=== PATIENT | female | born 1970 | race Caucasian/White ===

== ENCOUNTER 2024-05-29 17:53 | Observation (INO) ==
[2024-05-29 18:36] LABS: Basophils # (auto) 0.05 K/uL (0.00-0.20); Basophils % (auto) 0.8 %; Eosinophils # (auto) 0.03 K/uL (0.00-0.50); Eosinophils % (auto) 0.5 %; Hematocrit (blood only) 46.7 % (37.0-47.0); Immature Granulocytes # (auto) 0.02 K/uL (0.01-0.20); Immature Granulocytes % (auto) 0.3 %; Lymphocytes # (auto) 1.73 K/uL (1.20-3.40); Mean Corpuscular Hemoglobin 30.4 pg (25.0-34.0); Mean Corpuscular Hgb Conc 34.3 g/dL (32.0-36.0); Mean Corpuscular Volume 88.8 fL (80.0-100.0); Mean Platelet Volume 10.7 fL (9.4-12.4); Monocytes % (auto) 9.7 %; Neutrophils # (auto) 3.75 K/uL (1.40-6.50); Neutrophils % (auto) 60.7 %; Platelet Count 280 K/uL (130-400); RDW Coefficient of Variation 12.3 % (11.5-14.5); RDW Standard Deviation 39.9 fL (36.4-46.3); Red Blood Count 5.26 M/uL (4.20-5.40); White Blood Count 6.18 K/ul (4.8-10.8)
[2024-05-29 18:51] LABS: Albumin Globulin Ratio 1.8 (0.9-2); Albumin Level 5.8 gm/dl (3.4-5.0); BUN Creatinine Ratio 23.3 (10-20); Bilirubin,Total 0.9 mg/dl (0.2-1.0); Calcium 11.1 mg/dl (8.6-10.3); Creatinine Clr Calc Pharmacy 53.4 ml/min; Globulin 3.2 gm/dl (2.5-4.0); Potassium 3.8 mmol/L (3.5-5.1)
--- NOTE | 2024-05-29 18:55 | Emergency Department Note ---
Impression & Plan HTN (hypertension), EKG abnormalities, Elevated troponin, Nausea ED Provider Note NAME: KAREN CASSIDY AGE: 53 SEX: F : 1970 ARRIVES VIA: Walk-In INFORMANT: Patient ED PROVIDER(S): Heber Galicia DO CHIEF COMPLAINT: Abdominal pain HPI: Patient is a 53-year-old female with a past medical history of depression who presents ER for nausea and notes that she cannot eat. She was just started on semaglutide and took her second dose this past Monday. Since then she has been very nauseated and cannot eat. She denies any headache or change in vision. No chest pain or exertional chest pain or shortness of breath. No belly pain. No dysuria, urgency, or frequency. No arm pain or jaw pain. No other exacerbating or remitting factors. Patient notes that she had an EKG done as an outpatient and she was referred in here for abnormal EKG. ADDITIONAL HISTORY OBTAINED: Per HPI Chronic Medical/Social Conditions Affecting Care: Per HPI PAST MEDICAL HISTORY:See Below PAST SURGICAL HISTORY:See Below FAMILY HISTORY:See Below SOCIAL HISTORY:See Below HOME MEDICATIONS:See Below ALLERGIES:See Below VITALS:See Below PHYSICAL EXAMINATION: GENERAL: Sitting up in chair, alert, well appearing, well nourished, no distress, non-toxic EYE EXAM: normal conjunctiva. OROPHARYNX: mucous membranes are moist NECK: supple, no nuchal rigidity, no adenopathy, non-tender LUNGS: Clear to auscultation. Normal chest wall mechanics HEART: no murmurs, S1 normal and S2 normal ABDOMEN: abdomen soft, non-tender, normo-active bowel sounds, no masses, no rebound or guarding. UPPER EXTREMITIES: upper extremities are grossly normal. LOWER EXTREMITIES: No pitting edema. NEURO EXAM: Normal sensorium, cranial nerves II-XII grossly intact, normal speech, no gross weakness of arms, no gross weakness of legs. MEDICAL DECISION MAKING: Patient is a 53-year-old female who presents ER for the above-stated complaint. IV was established and blood work was obtained. Labs show no significant leukocytosis or anemia. INR unremarkable. BMP with a slightly elevated BUN. Calcium was unremarkable. LFTs and bilirubin were normal. Troponin was mildly elevated. hCG was negative. UA was contaminated. CT abdomen pelvis showed no acute pathology. Patient was given IV fluids and Zofran. Patient was updated bedside and discussed with the hospitalist for further evaluation management treatment. She does not have any chest pain or shortness of breath. Do favor EKG changes or simply LVH and the elevated troponin I favor is unlikely ACS but rather secondary to her hypertension. Systolic pressures came down from 180s to 140s to 150s without intervention. The persistent nausea is likely secondary to the Ozempic which she recently started. Consults/Care Managements Discussions: Per MDM Triage Nursing notes reviewed. Limited review of prior medical records performed Vital Signs: reviewed and remarkable for HTN, tachy Differential diagnosis: Differential diagnoses includes but is not limited to gastritis, peptic ulcer disease, GERD, gallbladder disease, pancreatitis, small bowel obstruction, appendicitis, diverticulitis, hernia, urinary tract infection, torsion, /ectopic (if female), perforation, trauma, infectious. ER treatment provided: See below Diagnostics interpreted by me include EKG and cardiac monitoring as listed below: -Cardiac Monitoring: An order was placed for continuous cardiac monitoring. The monitor shows a rate of 110 with sinus rhythm. -ECG: Sinus tachycardia rate of 112 Left axis No PVCs QTc 455 -Laboratory studies:Interpreted by me as stated above in MDM and shown below. Imaging studies: Xrays: As interpreted by me:none CTs show: CT abdomen pelvis per my pleurae interpretation showed no obvious bowel obstruction CT abdomen pelvis per radiology showed no acute pathology Procedures:none Critical Care: None Past Med/Surg History Problem List (Updated 05/29/24 @ 22:15 by Heber Galicia DO) Nausea (Acute) Elevated troponin (Acute) EKG abnormalities (Acute) HTN (hypertension) (Acute) Anorexia Nausea & vomiting Depression Contusion of multiple sites (Acute) Fall (Acute) Social History Smoking Status: Never smoker Preferred Language: Uzbek Feels Safe at Home: Yes Allergies Allergies Allergy/AdvReac Type Severity Reaction Status Date / Time Dust Allergy Intermediate congestion Uncoded 05/29/24 19:08 Home Meds Home Medications Medication Instructions Recorded Confirmed atorvastatin 10 mg tablet 10 mg PO DAILY 05/29/24 05/29/24 lisinopril 20 1 tab PO DAILY 05/29/24 05/29/24 mg-hydrochlorothiazide 25 mg tablet metoprolol succinate 50 mg 50 mg PO DAILY 05/29/24 05/29/24 tablet,extended release 24 hr omeprazole 20 mg capsule,delayed 20 mg PO DAILY 05/29/24 05/29/24 release sertraline 100 mg tablet 150 mg PO QAM 05/29/24 05/29/24 Results & Data (ED) Vital Signs Vital Signs - 24 hr 05/29/24 17:58 05/29/24 19:05 05/29/24 19:06 Temperature 36.7 C Temperature Source Temporal Artery Scan Pulse Rate 108 H Pulse Rate [Apical] 100 H Respiratory Rate 18 20 Respiratory Effort / Characteristics Non-Labored Spontaneous Non-Labored Spontaneous Respiratory Depth Normal Normal Respiratory Pattern Regular Regular Blood Pressure 142/81 H Blood Pressure [Right Arm] 180/116 H Blood Pressure Mean 101 Blood Pressure Mean [Right Arm] 137 Blood Pressure Position Sitting Blood Pressure Position [Right Arm] Semi-fowlers Pulse Oximetry 97 98 98 Oxygen Delivery Method Room Air Room Air Room Air Sepsis Recent Fever Within 48 Hours No Sepsis New/Unexplained Change in Mental Status N/A Sepsis Action Taken by Nursing No Action Required 05/29/24 19:10 05/29/24 21:00 Temperature Temperature Source Pulse Rate 101 H Pulse Rate [Apical] 93 H Respiratory Rate 14 Respiratory Effort / Characteristics Non-Labored Spontaneous Respiratory Depth Normal Respiratory Pattern Regular Blood Pressure Blood Pressure [Right Arm] 151/116 H Blood Pressure Mean Blood Pressure Mean [Right Arm] 127 Blood Pressure Position Blood Pressure Position [Right Arm] Semi-fowlers Pulse Oximetry 97 Oxygen Delivery Method Room Air Sepsis Recent Fever Within 48 Hours Sepsis New/Unexplained Change in Mental Status Sepsis Action Taken by Nursing Laboratory Data 05/29/24 18:16 05/29/24 18:16 Lab Results 05/29/24 05/29/24 05/29/24 Range/Units 18:13 18:16 21:15 WBC 6.18 (4.8-10.8) K/ul RBC 5.26 (4.20-5.40) M/uL Hgb 16.0 (12.0-16.0) g/dl Hct 46.7 (37.0-47.0) % MCV 88.8 (80.0-100.0) fL MCH 30.4 (25.0-34.0) pg MCHC 34.3 (32.0-36.0) g/dL RDW Std Deviation 39.9 (36.4-46.3) fL RDW Coeff of Julio 12.3 (11.5-14.5) % Plt Count 280 (130-400) K/uL MPV 10.7 (9.4-12.4) fL Immature Gran % (Auto) 0.3 % Neut % (Auto) 60.7 % Lymph % (Auto) 28.0 % [place] % (Auto) 9.7 % Eos % (Auto) 0.5 % Baso % (Auto) 0.8 % Neut # (Auto) 3.75 (1.40-6.50) K/uL Lymph # (Auto) 1.73 (1.20-3.40) K/uL [place] # (Auto) 0.60 H (0.11-0.59) K/uL Eos # (Auto) 0.03 (0.00-0.50) K/uL Baso # (Auto) 0.05 (0.00-0.20) K/uL Immature Gran # (Auto) 0.02 (0.01-0.20) K/uL PT 10.6 (9.0-12.0) Seconds INR 1.0 (0.9-1.1) APTT 31 (21-31) Seconds PTT Ratio 1.2 Sodium 137 (136-145) mmol/L Potassium 3.8 (3.5-5.1) mmol/L Chloride 100 (98-107) mmol/L Carbon Dioxide 26 (21-32) mmol/L Anion Gap 11 (3-11) BUN 28 H (6-23) mg/dl Creatinine 1.20 (0.6-1.2) mg/dl Est Cr Clr Drug Dosing 53.4 ml/min eGFR 53.46 BUN/Creatinine Ratio 23.3 H (10-20) Glucose 88 (70-99(Fasting)) mg/dl Calcium 11.1 H (8.6-10.3) mg/dl Total Bilirubin 0.9 (0.2-1.0) mg/dl AST 32 (13-39) U/L ALT 31 (7-52) U/L Alkaline Phosphatase 87 (34-104) U/L Troponin I High Sens 16.8 H 14.4 H (0-14) pg/ml Total Protein 9.0 H (6.0-8.3) gm/dl Albumin 5.8 H (3.4-5.0) gm/dl Globulin 3.2 (2.5-4.0) gm/dl Albumin/Globulin Ratio 1.8 (0.9-2) Lipase 55 (11-82) U/L HCG, Qual Negative (Negative) Urine Color Urine Appearance (Clear) Urine pH (4.5-7.5) Ur Specific Maple (1.000-1.030) Urine Protein (Negative) Urine Glucose (UA) (Negative) Urine Ketones (Negative) Urine Blood (Negative) Urine Nitrite (Negative) Urine Bilirubin (Negative) Urine Urobilinogen (Negative) Ur Leukocyte Esterase (Negative) Urine WBC (Auto) (0-5) /hpf Urine RBC (Auto) (0-2) /hpf U Hyaline Cast (Auto) (0-2) /lpf U Epithel Cells (Auto) (0-2) /hpf Urine Bacteria (Auto) (None Seen) 05/29/24 Range/Units Unknown WBC (4.8-10.8) K/ul RBC (4.20-5.40) M/uL Hgb (12.0-16.0) g/dl Hct (37.0-47.0) % MCV (80.0-100.0) fL MCH (25.0-34.0) pg MCHC (32.0-36.0) g/dL RDW Std Deviation (36.4-46.3) fL RDW Coeff of Julio (11.5-14.5) % Plt Count (130-400) K/uL MPV (9.4-12.4) fL Immature Gran % (Auto) % Neut % (Auto) % Lymph % (Auto) % [place] % (Auto) % Eos % (Auto) % Baso % (Auto) % Neut # (Auto) (1.40-6.50) K/uL Lymph # (Auto) (1.20-3.40) K/uL [place] # (Auto) (0.11-0.59) K/uL Eos # (Auto) (0.00-0.50) K/uL Baso # (Auto) (0.00-0.20) K/uL Immature Gran # (Auto) (0.01-0.20) K/uL PT (9.0-12.0) Seconds INR (0.9-1.1) APTT (21-31) Seconds PTT Ratio Sodium (136-145) mmol/L Potassium (3.5-5.1) mmol/L Chloride (98-107) mmol/L Carbon Dioxide (21-32) mmol/L Anion Gap (3-11) BUN (6-23) mg/dl Creatinine (0.6-1.2) mg/dl Est Cr Clr Drug Dosing ml/min eGFR BUN/Creatinine Ratio (10-20) Glucose (70-99(Fasting)) mg/dl Calcium (8.6-10.3) mg/dl Total Bilirubin (0.2-1.0) mg/dl AST (13-39) U/L ALT (7-52) U/L Alkaline Phosphatase (34-104) U/L Troponin I High Sens (0-14) pg/ml Total Protein (6.0-8.3) gm/dl Albumin (3.4-5.0) gm/dl Globulin (2.5-4.0) gm/dl Albumin/Globulin Ratio (0.9-2) Lipase (11-82) U/L HCG, Qual (Negative) Urine Color Dark Yellow Urine Appearance Cloudy A (Clear) Urine pH 5.5 (4.5-7.5) Ur Specific Maple 1.030 (1.000-1.030) Urine Protein 2+ H (Negative) Urine Glucose (UA) Negative (Negative) Urine Ketones 2+ H (Negative) Urine Blood Negative (Negative) Urine Nitrite Negative (Negative) Urine Bilirubin Negative (Negative) Urine Urobilinogen Negative (Negative) Ur Leukocyte Esterase Trace H (Negative) Urine WBC (Auto) 11-20 H (0-5) /hpf Urine RBC (Auto) 0-2 (0-2) /hpf U Hyaline Cast (Auto) 11-20 H (0-2) /lpf U Epithel Cells (Auto) 11-20 H (0-2) /hpf Urine Bacteria (Auto) 3+ H (None Seen) Administered Medications Discontinued Medications Sodium Chloride (Nss) 1,000 mls @ 999 mls/hr IV .[id number] ONE Stop: 05/29/24 19:52 Last Infusion: 05/29/24 20:03 Dose: Infused Documented By: Admin: 05/29/24 19:11 Dose: 999 mls/hr Documented By: TANYA Ioversol (Optiray 320 100ml) 90 ml IV ONCE ONE Stop: 05/29/24 19:21 Last Admin: 05/29/24 19:21 Dose: 90 ml Documented By: HUGO Ondansetron HCl (Ondansetron Inj 2 Mg/Ml 2 Ml Vial) 4 mg IV NOW STA Stop: 05/29/24 18:53 Last Admin: 05/29/24 19:12 Dose: 4 mg Documented By: TANYA Imaging Data Radiologist's Impression: Abdomen/Pelvis CT 05/29/24 18:51 Clinical History: Abdominal pain Technique: Axial computed tomography images were obtained of the abdomen and pelvis after the administration of intravenous contrast. No prior CT is available for comparison. Findings: The liver is overall of normal size, attenuation, and contour with no sign of cirrhosis or significant fatty infiltration. No liver mass lesion is seen. The portal vein is patent. The gallbladder appears unremarkable. No bile duct dilatation is noted. The spleen is of normal size. No focal splenic lesion is evident. The pancreas appears normal with no sign of acute or chronic pancreatitis and no mass lesion noted. The pancreatic duct is of normal caliber. The adrenal glands appear unremarkable. No definite renal or proximal ureteral calculi are seen on this contrast-enhanced study. There is no hydronephrosis or perinephric stranding. No renal mass lesion is identified. The aorta is of normal caliber. No abdominal adenopathy is seen. The stomach appears normal. There is no sign of small bowel obstruction. The colon appears unremarkable. The appendix appears normal also. No free intraperitoneal fluid or air is identified. No distal ureteral or bladder calculi are seen. The bladder is decompressed. The iliac arteries are of normal caliber. No pelvic adenopathy is noted. There is a 3 mm nodular opacity in the right middle lobe. No fracture is identified. No focal osseous lesion is seen Impression: 1. Small right middle lobe nodule, likely benign. If there is a history of smoking or other high-risk indicators, a follow-up chest CT could be obtained in 6 months [address] Otherwise un[address] CT of the abdomen and pelvis ACT 112: Positive. There are findings on this exam that require communication between the performing entity and the patient following Patient Test Result Information Act ([place] ACT 112) guidelines. Electronically signed by Mike Stovall 05-29-2024 7:51 PM Discharge Plan Visit Data Chief Complaint: Nausea Stated Complaint: DOC REF,NAUSEA ED Provider: Heber Galicia Discharge Problem: HTN (hypertension), EKG abnormalities, Elevated troponin, Nausea Forms Stand Alone Forms: My [facility] [employer] Prescriptions Prescriptions: No Action atorvastatin 10 mg tablet 10 mg PO DAILY metoprolol succinate 50 mg tablet extended release 24 hr 50 mg PO DAILY sertraline 100 mg tablet 150 mg PO QAM omeprazole 20 mg capsule,delayed release(DR/EC) 20 mg PO DAILY lisinopril-hydrochlorothiazide 20-25 mg tablet 1 tab PO DAILY Referrals Referrals: Clark Patiño MD [Primary Care Provider] - Discharge Problem: HTN (hypertension) Qualifiers: Hypertension type: unspecified Qualified Code(s): I10 - Essential (primary) hypertension
[2024-05-29 19:11] LABS: Pregnancy Test, Serum Negative (Negative)
[2024-05-29] MEDS: SODIUM CHLORIDE 0.9% 1,000 ML IV ONE (19:11)
[2024-05-29] MEDS: ONDANSETRON INJ 2 MG/ML 2 ML VIAL IV STA (19:12)
[2024-05-29 19:15] LABS: Partial Thromboplastin Ratio 1.2; Partial Thromboplastin Time 31 Seconds (21-31); Prothrombin Time 10.6 Seconds (9.0-12.0)
[2024-05-29] MEDS: OPTIRAY 320 100ml IV ONE (19:21)
[2024-05-29 19:35] LABS: Troponin I High Sensitivity 16.8 pg/ml (0-14)
[2024-05-29 19:50] LABS: Appearance Urine Cloudy (Clear); Bacteria Urine Automated 3+ (None Seen); Bilirubin Urine Negative (Negative); Blood Urine Negative (Negative); Color Urine Dark Yellow; Glucose Urine UA Negative (Negative); Ketones Urine 2+ (Negative); Leukocyte Esterase Urine Trace (Negative); Nitrite Urine Negative (Negative); Protein Urine 2+ (Negative); RBC Urine Automated 0-2 /hpf (0-2); Urobilinogen Urine Negative (Negative); pH Urine 5.5 (4.5-7.5)
--- NOTE | 2024-05-29 19:52 | CT Scan Report ---
Clinical History: Abdominal pain Technique: Axial computed tomography images were obtained of the abdomen and pelvis after the administration of intravenous contrast. No prior CT is available for comparison. Findings: The liver is overall of normal size, attenuation, and contour with no sign of cirrhosis or significant fatty infiltration. No liver mass lesion is seen. The portal vein is patent. The gallbladder appears unremarkable. No bile duct dilatation is noted. The spleen is of normal size. No focal splenic lesion is evident. The pancreas appears normal with no sign of acute or chronic pancreatitis and no mass lesion noted. The pancreatic duct is of normal caliber. The adrenal glands appear unremarkable. No definite renal or proximal ureteral calculi are seen on this contrast-enhanced study. There is no hydronephrosis or perinephric stranding. No renal mass lesion is identified. The aorta is of normal caliber. No abdominal adenopathy is seen. The stomach appears normal. There is no sign of small bowel obstruction. The colon appears unremarkable. The appendix appears normal also. No free intraperitoneal fluid or air is identified. No distal ureteral or bladder calculi are seen. The bladder is decompressed. The iliac arteries are of normal caliber. No pelvic adenopathy is noted. There is a 3 mm nodular opacity in the right middle lobe. No fracture is identified. No focal osseous lesion is seen Impression: 1. Small right middle lobe nodule, likely benign. If there is a history of smoking or other high-risk indicators, a follow-up chest CT could be obtained in 6 months 2. Otherwise unremarkable CT of the abdomen and pelvis ACT 112: Positive. There are findings on this exam that require communication between the performing entity and the patient following Patient Test Result Information Act ([place] ACT 112) guidelines. Electronically signed by Mike Stovall 05-29-2024 7:51 PM
--- NOTE | 2024-05-29 21:08 | History & Physical Report ---
Date of Service May 29, 2024 Assessment & Plan (1) Nausea & vomiting: Plan: Secondary to compounded online semaglutide Discontinue this medication IV fluids given Zofran as needed Advance diet slowly (2) Anorexia: Plan: Discontinue semaglutide (3) Depression: Plan: Stable Continue sertraline (4) HTN (hypertension): Plan: Continue prior to admission antihypertensives Follow blood pressures May need to adjust medications Check echocardiogram to assess for LVH (5) EKG abnormalities: Plan: Consult cardiology EKG repeat Echocardiogram LVH suggests uncontrolled HTN (6) Elevated troponin: Plan: Trend troponins Calcium is elevated. Will check ionized calcium and TSH UA looks positive. Cultures pending. She has no urinary symptoms VTE prophylaxis: Patient is low risk for now. Encourage ambulation Patient is a full code Total of 77 minutes spent in the direct care of this patient History of Present Illness Chief Complaint: Intractable nausea and vomiting, anorexia, medication reaction, abnormal EKG Primary Care Provider: Clark Patiño MD Marya Jones is a 53-year-old female with a past medical history of depression, hypertension, anxiety, heart murmur and GERD. She presents to the ER from her PCP office for intractable nausea and vomiting and notes that she cannot eat. She was started on semaglutide. This was a compounded formulation that she got online at 2.5 mg. Her first dose was on 05/18/2024. Second dose was on 05/25/2024. She tolerated the first dose without too much difficulty but after the second dose she has had significant nausea for the past week along with vomiting. She has been able to eat or drink much at all. She feels like she has a bubble in her chest. She states overall she has lost about 15 pounds. She denies any headache or change in vision. No chest pain or exertional chest pain or shortness of breath. No belly pain. No dysuria urgency or frequency. No arm pain or jaw pain. No other exacerbating or remitting factors. EKG in the office showed LVH and lateral T wave changes which were new. This was confirmed on EKG in the ED. Her troponin was mildly elevated at 16.8 in the ED. Repeat was 14.4. Calcium was 11.1. CT scan of the abdomen without acute abnormalities. Patient was given IV fluids in the ED. BP was initially high but has come down in the ED. UA looks positive. Culture pending but no urinary complaints Allergies Allergy/AdvReac Type Severity Reaction Status Date / Time Dust Allergy Intermediate congestion Uncoded 05/29/24 19:08 Home Medications Medication Instructions Recorded Confirmed Type atorvastatin 10 mg tablet 10 mg PO DAILY 05/29/24 05/29/24 History lisinopril 20 1 tab PO DAILY 05/29/24 05/29/24 History mg-hydrochlorothiazide 25 mg tablet metoprolol succinate 50 mg 50 mg PO DAILY 05/29/24 05/29/24 History tablet,extended release 24 hr omeprazole 20 mg capsule,delayed 20 mg PO DAILY 05/29/24 05/29/24 History release sertraline 100 mg tablet 150 mg PO QAM 05/29/24 05/29/24 History Past Med/Surg History Problem List (Updated 05/29/24 @ 22:15 by Heber Galicia DO) Nausea (Acute) Elevated troponin (Acute) EKG abnormalities (Acute) HTN (hypertension) (Acute) Anorexia Nausea & vomiting Depression Contusion of multiple sites (Acute) Fall (Acute) Social History Smoking Status: Never smoker Preferred Language: [place] Feels Safe at Home: Yes Review of Systems Review of Systems: Constitutional- no fever; has a 15 lb weight loss Eyes- no acute visual changes ENT- no sinus drainage; no pharyngitis Pulmonary- no cough, no wheezing, no shortness of breath Cardiac- no chest pain, no palpitations, no orthopnea, no dependent edema GI- has nausea and vomiting, no diarrhea, no melena, no hematochezia, - no dysuria, no hematuria Musculoskeletal- no arthralgias, no myalgias Derm- no rashes, no new skin lesions, no changing skin lesions Hematologic- no unusual bruising, no unusual bleeding Lymphatics- no adenopathy Endocrine- no polyuria or polydipsia; no heat or cold intolerance Neuro- no headaches, no focal neurologic symptoms Psych- hx of anxiety and depression stable Physical Exam Physical Exam: General- adult female seen at bedside in ED. Appears ill Head- atraumatic Eyes- PERRL, EOMI, anicteric ENT- oropharynx clear Neck- supple, no JVD, no adenopathy, no thyromegaly; carotids +2/2, no bruits appreciated Lungs- clear to auscultation and percussion Heart- regular rhythm; no murmur, no gallop, no rub appreciated Abdomen- normal bowel sounds, soft, nontender, no masses or hepatosplenomegaly Extremities- no pretibial edema, no calf tenderness; peripheral pulses intact Neuro- alert, oriented x 3; PERRL, EOMI; no facial palsy; no dysarthria; motor 5/5 bilaterally; Skin- warm & dry Results & Data Results & Data Vital Signs (Past 12 Hours) Vital Signs Temp Pulse Pulse Resp BP BP Pulse Ox 05/29/24 19:10 101 H 05/29/24 19:06 100 H 20 180/116 H 98 05/29/24 19:05 98 05/29/24 17:58 36.7 C 108 H 18 142/81 H 97 O2 Del Method 05/29/24 19:10 05/29/24 19:06 Room Air 05/29/24 19:05 Room Air 05/29/24 17:58 Room Air Diagnostic Findings Laboratory Results WBC 6.18 K/ul (4.8-10.8) 05/29/24 18:16 RBC 5.26 M/uL (4.20-5.40) 05/29/24 18:16 Hgb 16.0 g/dl (12.0-16.0) 05/29/24 18:16 Hct 46.7 % (37.0-47.0) 05/29/24 18:16 MCV 88.8 fL (80.0-100.0) 05/29/24 18:16 MCH 30.4 pg (25.0-34.0) 05/29/24 18:16 MCHC 34.3 g/dL (32.0-36.0) 05/29/24 18:16 RDW Std Deviation 39.9 fL (36.4-46.3) 05/29/24 18:16 RDW Coeff of Julio 12.3 % (11.5-14.5) 05/29/24 18:16 Plt Count 280 K/uL (130-400) 05/29/24 18:16 MPV 10.7 fL (9.4-12.4) 05/29/24 18:16 Immature Gran % (Auto) 0.3 % 05/29/24 18:16 Neut % (Auto) 60.7 % 05/29/24 18:16 Lymph % (Auto) 28.0 % 05/29/24 18:16 Grainger % (Auto) 9.7 % 05/29/24 18:16 Eos % (Auto) 0.5 % 05/29/24 18:16 Baso % (Auto) 0.8 % 05/29/24 18:16 Neut # (Auto) 3.75 K/uL (1.40-6.50) 05/29/24 18:16 Lymph # (Auto) 1.73 K/uL (1.20-3.40) 05/29/24 18:16 Grainger # (Auto) 0.60 K/uL (0.11-0.59) H 05/29/24 18:16 Eos # (Auto) 0.03 K/uL (0.00-0.50) 05/29/24 18:16 Baso # (Auto) 0.05 K/uL (0.00-0.20) 05/29/24 18:16 Immature Gran # (Auto) 0.02 K/uL (0.01-0.20) 05/29/24 18:16 PT 10.6 Seconds (9.0-12.0) 05/29/24 18:16 INR 1.0 (0.9-1.1) 05/29/24 18:16 APTT 31 Seconds (21-31) 05/29/24 18:16 PTT Ratio 1.2 05/29/24 18:16 Sodium 137 mmol/L (136-145) 05/29/24 18:16 Potassium 3.8 mmol/L (3.5-5.1) 05/29/24 18:16 Chloride 100 mmol/L (98-107) 05/29/24 18:16 Carbon Dioxide 26 mmol/L (21-32) 05/29/24 18:16 Anion Gap 11 (3-11) 05/29/24 18:16 BUN 28 mg/dl (6-23) H 05/29/24 18:16 Creatinine 1.20 mg/dl (0.6-1.2) 05/29/24 18:16 Est Cr Clr Drug Dosing 53.4 ml/min 05/29/24 18:16 eGFR 53.46 05/29/24 18:16 BUN/Creatinine Ratio 23.3 (10-20) H 05/29/24 18:16 Glucose 88 mg/dl (70-99(Fasting)) 05/29/24 18:16 Calcium 11.1 mg/dl (8.6-10.3) H 05/29/24 18:16 Total Bilirubin 0.9 mg/dl (0.2-1.0) 05/29/24 18:16 AST 32 U/L (13-39) 05/29/24 18:16 ALT 31 U/L (7-52) 05/29/24 18:16 Alkaline Phosphatase 87 U/L (34-104) 05/29/24 18:16 Troponin I High Sens 16.8 pg/ml (0-14) H 05/29/24 18:16 Total Protein 9.0 gm/dl (6.0-8.3) H 05/29/24 18:16 Albumin 5.8 gm/dl (3.4-5.0) H 05/29/24 18:16 Globulin 3.2 gm/dl (2.5-4.0) 05/29/24 18:16 Albumin/Globulin Ratio 1.8 (0.9-2) 05/29/24 18:16 Lipase 55 U/L (11-82) 05/29/24 18:16 HCG, Qual Negative (Negative) 05/29/24 18:13 Urine Color Dark Yellow 05/29/24 Unknown Urine Appearance Cloudy (Clear) A 05/29/24 Unknown Urine pH 5.5 (4.5-7.5) 05/29/24 Unknown Ur Specific Plato 1.030 (1.000-1.030) 05/29/24 Unknown Urine Protein 2+ (Negative) H 05/29/24 Unknown Urine Glucose (UA) Negative (Negative) 05/29/24 Unknown Urine Ketones 2+ (Negative) H 05/29/24 Unknown Urine Blood Negative (Negative) 05/29/24 Unknown Urine Nitrite Negative (Negative) 05/29/24 Unknown Urine Bilirubin Negative (Negative) 05/29/24 Unknown Urine Urobilinogen Negative (Negative) 05/29/24 Unknown Ur Leukocyte Esterase Trace (Negative) H 05/29/24 Unknown Urine WBC (Auto) 11-20 /hpf (0-5) H 05/29/24 Unknown Urine RBC (Auto) 0-2 /hpf (0-2) 05/29/24 Unknown U Hyaline Cast (Auto) 11-20 /lpf (0-2) H 05/29/24 Unknown U Epithel Cells (Auto) 11-20 /hpf (0-2) H 05/29/24 Unknown Urine Bacteria (Auto) 3+ (None Seen) H 05/29/24 Unknown Impressions Abdomen/Pelvis CT 05/29/24 18:51 Clinical History: Abdominal pain Technique: Axial computed tomography images were obtained of the abdomen and pelvis after the administration of intravenous contrast. No prior CT is available for comparison. Findings: The liver is overall of normal size, attenuation, and contour with no sign of cirrhosis or significant fatty infiltration. No liver mass lesion is seen. The portal vein is patent. The gallbladder appears unremarkable. No bile duct dilatation is noted. The spleen is of normal size. No focal splenic lesion is evident. The pancreas appears normal with no sign of acute or chronic pancreatitis and no mass lesion noted. The pancreatic duct is of normal caliber. The adrenal glands appear unremarkable. No definite renal or proximal ureteral calculi are seen on this contrast-enhanced study. There is no hydronephrosis or perinephric stranding. No renal mass lesion is identified. The aorta is of normal caliber. No abdominal adenopathy is seen. The stomach appears normal. There is no sign of small bowel obstruction. The colon appears unremarkable. The appendix appears normal also. No free intraperitoneal fluid or air is identified. No distal ureteral or bladder calculi are seen. The bladder is decompressed. The iliac arteries are of normal caliber. No pelvic adenopathy is noted. There is a 3 mm nodular opacity in the right middle lobe. No fracture is identified. No focal osseous lesion is seen Impression: 1. Small right middle lobe nodule, likely benign. If there is a history of smoking or other high-risk indicators, a follow-up chest CT could be obtained in 6 months 2. Otherwise unremark[address] CT of the abdomen and pelvis ACT 112: Positive. There are findings on this exam that require communication between the performing entity and the patient following Patient Test Result Information Act ([place] ACT 112) guidelines. Electronically signed by Mike Stovall 05-29-2024 7:51 PM
[2024-05-29] MEDS ORDERED: ALUMINUM/MAGNESIUM SUSP 30 ML UDC PO PRN (23:24)
[2024-05-29] MEDS ORDERED: POLYETHYLENE (MIRALAX) 17 GM PACK PO PRN (23:24)
[2024-05-30 06:43] LABS: Hematocrit (blood only) 39.5 % (37.0-47.0); Hemoglobin 13.6 g/dl (12.0-16.0); Mean Corpuscular Hemoglobin 30.5 pg (25.0-34.0); Mean Corpuscular Hgb Conc 34.4 g/dL (32.0-36.0); Mean Corpuscular Volume 88.6 fL (80.0-100.0); Mean Platelet Volume 11.1 fL (9.4-12.4); Platelet Count 186 K/uL (130-400); RDW Coefficient of Variation 12.5 % (11.5-14.5); RDW Standard Deviation 40.3 fL (36.4-46.3); Red Blood Count 4.46 M/uL (4.20-5.40); White Blood Count 4.04 K/ul (4.8-10.8)
[2024-05-30 07:12] LABS: BUN Creatinine Ratio 24.5 (10-20); Calcium 9.4 mg/dl (8.6-10.3); Creatinine Clr Calc Pharmacy 73.7 ml/min; Potassium 4.1 mmol/L (3.5-5.1)
[2024-05-30 07:27] LABS: Thyroid Stimulating Hormone 2.512 uIu/ml (0.300-4.500); Troponin I High Sensitivity 7.6 pg/ml (0-14)
[2024-05-30] MEDS: LISINOPRIL/HCTZ 20/25MG 1 TAB PO SCH (08:14)
[2024-05-30] MEDS: ATORVASTATIN 10 MG TAB PO SCH (08:15)
[2024-05-30] MEDS: PANTOprazole 40 MG TAB PO SCH (08:15)
[2024-05-30] MEDS: METOPROLOL SUCC 50MG EXT REL TAB PO SCH (08:15)
[2024-05-30] MEDS: SERTRALINE HCL 50 MG TABLET PO SCH (08:15)
--- OUTSIDE RECORDS SUMMARY | 2024-05-30 09:09 | External Medical Summary | Summary of Care ---
Author Name Unknown Organization [facility] Address [address] [place] [place] [address] Phone [phone] Care Team Providers Care Desktop Analyst Name Role Phone Clark Patiño MD Primary Care Provider [phone] Reason for Visit * Reason Onset Date Comments Physical-Exam Pt here for phys icalNo complains; would like to discuss getting the flu shot but is getting over a cold. Medication Administration 01/13/2024 Flu an d/or Pneumo Inj Encounter Details Date Type Department Care Team (Late st Contact Info) Description 01/13/2024 2:00 PM EST Office Visit [facility] [address] [facility] [address] Clark Patiño MD [address] [facility] [place] [address] Routine medical exam*; HTN, goal below 140/90; Dyslipidemia, goal LDL below 100; Encounter for long-term (current) use of medications; Need for prophylactic vaccination and inoculation against influenza Allergies No known active allergiesdocumented as of this encounter (statuses as of 01/13/2024) Medications valACYclovir HCl 1 GM Oral Tablet (Valtrex)Indicat ions:Recurrent cold sores Take 1 Tablet by mouth in the morning. 90 Tablet 4 Active Atorvastatin Calcium 10 MG Oral Tablet (Lipitor)Indicat ions:Dyslipidemi a, goal LDL below 100 TAKE 1 TABLET IN THE MORNING 90 Tablet 3 4 Active Omeprazole 20 MG Oral Capsule Delayed Release (PriLOSEC)Indica tions:Gastroesop hageal reflux disease without esophagitis TAKE 1 CAPSULE IN THE MORNING 1 HOUR BEFORE THE FIRST MEAL OF THE DAY 90 Capsule 3 4 Active Additional Information Patient not taking.Reported on 01/13/2024 Lisinopril-hydro CHLOROthiazide 20-25 MG Oral Tablet Take 1 Tablet by mouth in the morning. 90 Tablet 3 4 Active Sertraline HCl 100 MG Oral Tablet (Zoloft) Take one and a half tablets by mouth daily 135 Tablet 3 4 Active Metoprolol Succinate ER 25 MG Oral Tablet Extended Release 24 Hour (toPROL XL)Indications:H TN, goal below 140/90 Take 1 Tablet by mouth in the morning. 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 10/15/2009 Irritable bowel syndrome 09/29/2005 Major depressive disorder 09/29/2005 Overview (12/27/2016): ICD-10 update of inactive term documented as of this encounter (statuses as of 01/13/2024) Resolved Problems Problem Noted Date Diagnosed Date Resolved Date Mixed rhinitis 03/04/2014 10/09/2017 Recurrent sinus infections 03/04/2014 0 09/30/2016 ETD (eustachian tube dysfunction) 03/04/2014 10/09/2017 Hypertrophy tonsils 08/22/2011 10/01/19 17 Acute pharyngitis 08/22/2011 09/30/2016 Cough 10/15/2009 09/30/2016 ALLERGIC RHINITIS NOS 10/15/20092014 Acute URI 10/15/2009 03/04/2014 ADVANCE DIRECTIVE INFORMATION 04/06/2006 10/09/2017 Overview (04/06/2006): No, Advance Directive brochure offered , patient declined. documented as of this encounter (statuses as of 01/13/2024) Immunizations Name Administration Dates Next Due Influenza Vaccine, Live, Int ranasal, Trivalent (Flumist) 01/04/2009 PPD 06/22/2016 Seasonal Influenza Vac., MDV , IM, 0.5 mL (Fluzone) 01/06/2014 Seasonal Influenza, PF, 6 M & above, IM , (FluLaval or Fluzone) 12/13/2021,12/03/2020,01/06/2020, 019,02/01/2018,01/18/2017 Seasonal Influenza, Quadriva lent, No Preserve, IM 02/19/2016,12/31/2014 Seasonal Influenza, Trivalen t, (IIV3), PF, (Fluzone) 01/13/2024 TD - Tetanus/Diptheria (ADULT) 04/28/2005 TDAP (age 10 and older)(Boostrix) 05/14/2015 documented as of this encounter Social History Tobacco Use Types Packs/Day Years Used Date Smoking Tobacco: Never Smokeless Tobacco: Never Comments:no passive smoke Alcohol Use Standard Drinks/Week Comments Yes 0 (1 standard drink = 0.6 oz pur e alcohol) Occasionally PHQ-2 Answer Date Recorded PHQ-2 Score 13 11/21/2018 Hunger Vital Sign Answer Date Recorded Within the past 12 months, y ou worried that your food would run out before you got the money to buy more. Never true 07/05/19 23 Within the past 12 months, t he food you bought just didn't last and you didn't have money to get more. 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 Not on file Not on file Not on file documented as of this encounter Last Filed Vital Signs Vital Sign Reading Time Taken Comments Blood Pressure 142/82 01/13/2024 2:04 PM EST Pulse 76 01/13/2024 2:04 PM EST Temperature 36.7 C (98.1 F) 01/13/2024 2:04 PM ES T Respiratory Rate 16 01/13/2024 2:04 PM EST Oxygen Saturation 99% 01/13/2024 2:04 PM EST Inhaled Oxygen Concentration - - Weight 80.8 kg (178 lb 1.6 oz) 01/13/2024 2:04 P M EST Height 170.2 cm (5' 7") 01/13/2024 2:04 PM EST Body Mass Index 27.89 01/13/2024 2:04 PM EST documented in this encounter Progress Notes * Clark Patiño MD - 01/13/2024 2:33 PM EST Subjective: Marya Jones is a 53 year old female here today for Chief Complaint Patient presents with Physical-Exam Pt here for physical No complains; would like to discuss getting the flu shot but is getting over a cold. Medication Administration Flu and/or Pneumo Inj Patient presents for routine yearly exam. She is up-to-date with labs and will have them repeated before follow-up in 6 months. She is tolerating her current medications. She has questions about maybe going on a beta-warren to help with her blood pressure and anxiety. She does get some palpitations at times as well. She is agreeable to the influenza vaccination today. She is aware of the availability of a shingles vaccination and a COVID booster. She is up-to-date with colonoscopy and mammography. She is due for Pap testing and will consider getting that scheduled with a female provider in the clinic. Past Medical History: Diagnosis Date Anxiety state Depressive disorder, not elsewhere classified [place] Esophageal reflux Irritable bowel syndrome Past Surgical History: Procedure Laterality Date BREAST BIOPSY Left 2016 Benign BREAST BIOPSY Right 2019 Benign COLONOSCOPY, DIAGNOSTIC (RECTUM) 08/23/2019 normal, repeat 10 yrs / COLONOSCOPY FLEXIBLE PROXIMAL DIAGNOSTIC performed by Malika Escalera MD at ENDOSCOPY [facility] EGD, FLEXIBLE, DIAGNOSTIC 04/23/2021 mild gastric irritation on bx / ESOPHAGOGASTRODUODENOSCOPY (EGD), FLEXIBLE, TRANSORAL, DIAGNOSTIC performed by Danya Ahmadi DO at ENDOSCOPY [facility] GASTROCNEMIUS RECESSION Left 10/21/2022 GASTROCNEMIUS RECESSION performed by Lavonne Cook DPM at OR [facility] Review of patient's allergies indicates: No Known Allergies Current Outpatient Medications Medication Sig Dispense Refill Atorvastatin Calcium 10 MG Oral Tablet (Lipitor) TAKE 1 TABLET IN THE MORNING 90 Tablet 3 Lisinopril-hydroCHLOROthiazide 20-25 MG Oral Tablet Take 1 Tablet by mouth in the morning. 90 Tablet 3 Sertraline HCl 100 MG Oral Tablet (Zoloft) Take one and a half tablets by mouth daily 135 Tablet 3 Metoprolol Succinate ER 25 MG Oral Tablet Extended Release 24 Hour (toPROL XL) Take 1 Tablet by mouth in the morning. 90 Tablet 0 valACYclovir HCl 1 GM Oral Tablet (Valtrex) Take 1 Tablet by mouth in the morning. 90 Tablet 0 Omeprazole 20 MG Oral Capsule Delayed Release (PriLOSEC) TAKE 1 CAPSULE IN THE MORNING 1 HOUR BEFORE THE FIRST MEAL OF THE DAY (Patient not taking: Reported on 01/13/2024) 90 Capsule 3 No current facility-administered medications for this visit. Objective: BP 142/82 | Pulse 76 | Temp 36.7 C (98.1 F) (Tympanic) | Resp 16 | Ht 1.702 m (5' 7") | Wt 80.8 kg (178 lb 1.6 oz) | LMP (LMP Unknown) | SpO2 99% | BMI 27.89 kg/m | BSA 1.95 m GEN: NAD HEENT: PERRLA, EOMI, conjunctiva not injected or icteric. EACs clear of obstruction, inflammation, drainage. TM's normal without erythema or lesion. No fluid or infection seen in middle ear space. Nares clear of obstruction, lesion, drainage. OP without tonsillar enlargement or exudate, MMM, no lesion. NECK: Supple with no LAD, TM, JVD CHEST: CTA B CV: RRR ABD: Soft, NT/ND, No HSM, NABS EXT: No c,c,e Assessment and Plan: Routine medical exam (Primary) -reviewed routine preventive medicine as above. Influenza vaccination given today. Labs prior to her next visit. Schedule gynecologic exam/pap test. HTN, goal below 140/90 - Metoprolol Succinate ER 25 MG Oral Tablet Extended Release 24 Hour (toPROL XL); Take 1 Tablet by mouth in the morning. - COMPREHENSIVE METABOLIC PANEL; Future; Expected date: 01/13/2024 - ALBUMIN / CREATININE RATIO, URINE; Future; Expected date: 01/13/2024 -continue other meds Dyslipidemia, goal LDL below 100 - LIPID PANEL WITH DIRECT LDL IF TG IS HIGH; Future; Expected date: 01/13/2024 - COMPREHENSIVE METABOLIC PANEL; Future; Expected date: 01/13/2024 -continue atorvastatin Encounter for long-term (current) use of medications - VITAMIN B12; Future; Expected date: 01/13/2024 - MAGNESIUM; Future; Expected date: 01/13/2024 Need for prophylactic vaccination and inoculation against influenza - INFLUENZA VAC, TRIVALENT, (IIV3), PF, 0.5 ML (FLUZONE) Follow Up: Return in about 6 months (around 07/12/2024) for recheck BP. | For: recheck BP Clark Patiño MD * Cornelia Keene MED ASSIST - 01/13/2024 2:08 PM EST The patient has been properly identified by confirmation of name and date of . Chief Complaint Patient presents with Physical-Exam Pt here for physical No complains; would like to discuss getting the flu shot but is getting over a cold. Medication Administration Flu and/or Pneumo Inj PRE - ADMINISTRATION DOCUMENTATION Are you experiencing any cold symptoms or fever? No Have you had Guillain-[place] Syndrome (an illness that causes paralysis) within the last 6 weeks? No Have you had the flu shot in the past? YES Have you ever had a reaction to the flu shot? No ERICK Bashir, 01/13/2024 2:27 PM Immunization Administration Documentation Time Out Procedure Performed: Yes Patient Identified (Ask Name/Date of ): Yes Does the patient have a fever greater than 101 degrees today? No Patient allergic to latex? No VFC Stock: No Immunization(s) verified: Yes, Immunization Name: Flu, VIS Sheet(s) given: Yes Verified Side and Site: Yes Verified Shot(s) with Parent(s)/Patient: Yes documented in this encounter Plan of Treatment Upcoming Encounters Date Type Department Care Team (Late st Contact Info) Description 01/16/2024 1:20 PM EST Telemedicine [address] [id number] JulyBairon MD [address] [facility] [address] 02/08/2024 3:00 PM EST Imaging Radiology [address], [place] [address] [place] [address] Scheduled Orders Name Type Priority Associated Diagnoses Orde r Schedule LIPID PANEL WITH DIRECT LDL IF TG IS HIGH Lab Routine Dyslipidemia, goal LDL below 100 Expected: 01/13/2024, Expires: 01/12/2025 COMPREHENSIVE METABOLIC PANEL Lab Routine HTN, goal below 140/90 Dyslipidemia, goal LDL below 100 Expected: 01/13/2024 (Approximate), Expires: 01/12/2025 VITAMIN B12 Lab Routine Encounter for long-term (current) use of medications Expected: 01/13/2024 (Approximate), Expires: 01/12/2025 MAGNESIUM Lab Routine Encounter for long-term (current) use of medications Expected: 01/13/2024 (Approximate), Expires: 01/12/2025 ALBUMIN / CREATININE RATIO, URINE Lab Routine HTN, goal below 140/90 Expected: 01/13/2024 (Approximate), Expires: 01/12/2025 Scheduled Procedures Name Priority Associated Diagnoses Date/Ti me COLONOSCOPY FLEXIBLE PROXIMAL DIAGNOSTIC Recall Screen for colon cancer Health Maintenance Due Date Last Done Comments HIV Screening 10/19/1983 Hepatitis B Vaccine (1 of 3 - 19+ 3-dose series) 10/19/1987 HPV/Co-Test 1998 Cologuard 2013 Fecal Occult Blood Test 2013 Sigmoidoscopy 2013 Zoster Vaccines (1 of 2) 2018 Depression Monitoring 11/22/2019 11/21/2018 Cervical Cancer Screening 04/17/2022 Pap Smear 04/17/2022 04/17/2019, 03/06, 03/24/2015, Additional history exists COVID-19 Vaccine ( season) 2023 Mammogram 02/07/2024 02/06/2023, 10/04, 09/21/2021, Additional history exists DTap/Tdap Vaccines (2 - Td or Tdap) 05/13/2025 05/14/2015, 04/28/2005 Diabetes Screening 10/04/2026 10/05/2023, 0 07/12/2023, 02/04/2022, Additional history exists Lipid Panel 07/11/2028 07/12/2023, 1204/2021, 09/20/2021, Additional history exists Colonoscopy 08/22/2029 08/23/2019, 08/23/2019 Colorectal Cancer Screening 08/22/2029 Influenza Vaccine (FLU shot) Completed 11/2023, 12/13/2021, 12/03/2020, Additional history exists HPV (Gardasil) Vaccine Aged Out No lo nger eligible based on patient's age to complete this topic MENINGOCOCCAL (MENACTRA/MENVEO) Aged Out No longer eligible based on patient's age to complete this topic Pneumococcal Vaccine: Pediatrics (0 to 5 Years) and At-Risk Patients (6 to 64 Years) Aged Out No longer eligible based on patient's age to complete this topic documented as of this encounter Medical Devices Not on filedocumented as of this encounter Visit Diagnoses Diagnosis Routine medical exam- Primary Routine general medical examination at a health care facility HTN, goal below 140/90 Unspecified essential hypertension Dyslipidemia, goal LDL below 100 Other and unspecified hyperlipidemia Encounter for long-term (current) use of medications Encounter for long-term (current) use of other medications Need for prophylactic vaccination and inoculation against influenza documented in this encounter Care Teams Desktop Analyst Relationship Specialty Start Date End Date Clark Patiño MD [address] [place] [address] PCP - General 01/24/05 documented as of this encounter
--- OUTSIDE RECORDS SUMMARY | 2024-05-30 09:09 | External Medical Summary | Summary of Care ---
Author Name Unknown Organization [facility] Address [address] [place] [address] Phone [phone] Care Team Providers Care Life Care Planner Name Role Phone Clark Patiño MD Primary Care Provider +1- [phone] Reason for Visit * Reason Comments eRx-Medication Refill Encounter Details Date Type Department Care Team (Late st Contact Info) Description 12/28/2023 Refill [facility] [address] [place] [facility] [place] [address] JulyBairon MD [address] [place] [address] Current episode of major depressive disorder without prior episode, unspecified depression episode severity Allergies No known active allergiesdocumented as of this encounter (statuses as of 12/30/2023) Medications Medication Sig Dispensed Refills Start Date End Date Status valACYclovir HCl 1 GM Oral Tablet (Valtrex)Indications: Recurrent cold sores Take 1 Tablet by mouth in the morning. 90 Tablet 03/15/2023 Active Atorvastatin Calcium 10 MG Oral Tablet (Lipitor)Indications: Dyslipidemia, goal LDL below 100 TAKE 1 TABLET IN THE MORNING 90 Tablet 3 08/17/2023 Active Omeprazole 20 MG Oral Capsule Delayed Release (PriLOSEC)Indications :Gastroesophageal reflux disease without esophagitis TAKE 1 CAPSULE IN THE MORNING 1 HOUR BEFORE THE FIRST MEAL OF THE DAY 90 Capsule 3 08/30/2023 Active Lisinopril-hydroCHLOR Othiazide 20-25 MG Oral Tablet Take 1 Tablet by mouth in the morning. 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 10/15/2009 Irritable bowel syndrome 09/29/2005 Major depressive disorder 09/29/2005 Overview: ICD-10 update of inactive term documented as of this encounter (statuses as of 12/30/2023) Resolved Problems Problem Noted Date Diagnosed Date Resolved Date Mixed rhinitis 03/04/2014 10/09/2017 Recurrent sinus infections 03/04/2014 0 09/30/2016 ETD (eustachian tube dysfunction) 03/04/2014 10/09/2017 Hypertrophy tonsils 08/22/2011 10/01/19 17 Acute pharyngitis 08/22/2011 09/30/2016 Cough 10/15/2009 09/30/2016 ALLERGIC RHINITIS NOS 10/15/20092014 Acute URI 10/15/2009 03/04/2014 ADVANCE DIRECTIVE INFORMATION 04/06/2006 10/09/2017 Overview: No, Advance Directive brochure offered , patient declined. documented as of this encounter (statuses as of 12/30/2023) Immunizations Name Administration Dates Next Due Influenza Vaccine, Live, Int ranasal, Trivalent (Flumist) 01/04/2009 PPD 06/22/2016 Seasonal Influenza Vac., MDV , IM, 0.5 mL (Fluzone) 01/06/2014 Seasonal Influenza, PF, 6 M & above, IM , (FluLaval or Fluzone) 12/13/2021,12/03/2020,01/06/2020, 019,02/01/2018,01/18/2017 Seasonal Influenza, Quadriva lent, No Preserve, IM 02/19/2016,12/31/2014 TD - Tetanus/Diptheria (ADULT) 04/28/2005 TDAP (age [...] money to get more. Never true 07/04/2022 Utilities Answer Date Recorded Do you have trouble paying y our heating, water, or electric bill? (Adult - for ages 18 years and over) Not on file 08/22/2023 Is your family able to pay t he heat, water, or electric bill? (Household - for ages 0-17 years) Not on file 08/22/2023 Does your family have access to good internet? (Household - for ages 0-17 years) Not on file 08/22/2023 Social Connections Answer Date Recorded How often do you feel lonely or isolated from those around you? (Adult - for ages 18 years and over) Not on file 08/22/2023 Sex and Gender Information Value Date Recorded Sex Assigned at Female 07/04/2022 7:11 PM EDT Gender Identity Female 07/04/2022 7:11 PM EDT Sexual Orientation Straight 09/20/2021 9: 05 AM EDT Job Start Date Occupation Industry Not on file Not on file Not on file documented as of this encounter Miscellaneous Notes * Telephone Encounter - Eris Whitt [facility] - 12/30/2023 8:06 AM EDT Refused Prescriptions: Disp Refills Escitalopram Oxalate 20 MG Oral Tablet (Le*90 Tab*3 Sig: TAKE 1TABLET IN THE MORNINGRefused By: ERIS WHITT for Refusal: Course of treatment com plete documented in this encounter Plan of Treatment Upcoming Encounters Date Type Department Care Team (Late st Contact Info) Description 01/13/2024 2:00 PM EST Office Visit Family Practice [facility] [address] [place] [address] Clark Patiño MD [address] [place] [address] 02/08/2024 3:00 PM EST Imaging Radiology [facility] [facility] [address] [place] [address] Scheduled Procedures Name Priority Associated Diagnoses Date/Ti [...] 03/24/2015, Additional history exists COVID-19 Vaccine ( - season) 2023 Influenza Vaccine (FLU shot) (#1) 2023 12/13/2021, 12/03/2020, 01/06/2020, Additional history exists Mammogram 02/07/2024 02/06/2023, 10/04, 09/21/2021, Additional history exists DTap/Tdap Vaccines (2 - Td or Tdap) 05/13/2025 05/14/2015, 04/28/2005 Diabetes Screening 10/04/2026 10/05/2023, 0 07/12/2023, 02/04/2022, Additional history exists Lipid Panel 07/11/2028 07/12/2023, 12/0 04/2021, 09/20/2021, Additional history exists Colonoscopy 08/22/2029 08/23/2019, 08/23/2019 Colorectal Cancer Screening 08/22/2029 HPV (Gardasil) Vaccine Aged Out No lo [...] as of this encounter Visit Diagnoses Diagnosis Current episode of major depressive disorder without prior episode, unspecified depression episode severity documented in this encounter Care Teams Life Care Planner Relationship Specialty Start Date End Date Clark Patiño MD [address] [place] [address] PCP - General 01/24/05 documented as of this encounter
--- OUTSIDE RECORDS SUMMARY | 2024-05-30 09:09 | External Medical Summary | Summary of Care ---
Author Name Unknown Organization [facility] Address [address] [facility] [place] [address] Phone [phone] Care Team Providers Care [place] Guide Name Role Phone Urban Johnson MD Primary Care Provider +1- [phone] Reason for Visit * Reason Onset Date Comments Medication Refill 04/19/2024 Encounter Details Date Type Department Care Team (Late st Contact Info) Description 04/19/2024 Refill Family Practice [facility] [address] [facility] [place] [address] Urban Johnson MD [address] [facility] [place] [address] Dyslipidemia, goal LDL below 100 Allergies No known active allergiesdocumented as of this encounter (statuses as of 04/20/2024) Medications valACYclovir HCl 1 GM Oral Tablet (Valtrex)Indicat ions:Recurrent cold sores Take 1 Tablet by mouth in the morning. 90 Tablet 4 Active Lisinopril-hydro CHLOROthiazide 20-25 MG Oral Tablet Take 1 Tablet by mouth in the morning. 90 Tablet 3 4 Active Sertraline HCl 100 MG Oral Tablet (Zoloft) Take one and a half tablets by mouth daily 135 Tablet 3 4 Active Metoprolol Succinate ER 50 MG Oral Tablet Extended Release 24 Hour (toPROL XL)Indications:H TN, goal below 140/90,Elevated blood pressure, situational,Stre ss at home TAKE 1 TABLET BY MOUTH AT BEDTIME 90 Tablet 1 5 Active Meloxicam 15 MG Oral TabletIndication s:Fall from chair, subsequent encounter Take 1 Tablet by mouth in the morning. for pain.. 10 Tablet 5 Active Omeprazole 20 MG Oral Capsule Delayed Release (PriLOSEC)Indica tions:Gastroesop hageal reflux disease without esophagitis Take 1 Capsule by mouth in the morning. 1 hour before the first meal of the day. 90 Capsule 3 5 Active Cyclobenzaprine HCl 5 MG Oral Tablet (Flexeril)Indica tions:Fall from chair, subsequent encounter Take 1 Tablet by mouth 3 times a day as needed for Muscle spasms. 20 Tablet 5 Active Atorvastatin Calcium 10 MG Oral Tablet (Lipitor)Indicat ions:Dyslipidemi a, goal LDL below 100 Take 1 Tablet by mouth in the morning. 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 10/15/2009 Irritable bowel syndrome 09/29/2005 Major depressive disorder 09/29/2005 Overview (12/27/2016): ICD-10 update of inactive term documented as of this encounter (statuses as of 04/20/2024) Resolved Problems Problem Noted Date Diagnosed Date [...] as of this encounter (statuses as of 04/20/2024) Immunizations Name Administration Dates Next Due Influenza [...] encounter Miscellaneous Notes * Telephone Encounter - Galen Chavarria, [facility] - 04/20/2024 11:10 AM EST Signed Prescriptions: Disp Refills Atorvastatin Calcium 10 MG Oral Tablet (Li*90 Tab*0 Sig: Take 1 Tablet by mouth in the morning.Authorizing Provider: URBAN JOHNSON User: GALEN CHAVARRIA documented in this encounter Plan of Treatment Scheduled Procedures Name Priority Associated Diagnoses Date/Ti me COLONOSCOPY FLEXIBLE PROXIMAL DIAGNOSTIC Recall Screen for colon cancer Health Maintenance Due Date Last Done Comments HIV Screening 10/19/1983 Hepatitis B Vaccine (1 of 3 - 19+ 3-dose series) 10/19/1987 HPV/Co-Test 1998 Cologuard 2013 Fecal Occult Blood Test 2013 Sigmoidoscopy 2013 Pneumococcal Vaccine: 50+ Years (1 of 1 - PCV) 2018 Zoster Vaccines (1 of 2) 2018 Depression Monitoring 11/22/2019 11/21/2018 Cervical Cancer Screening 04/17/2022 Pap Smear 04/17/2022 04/17/2019, 03/06, 03/24/2015, Additional history exists COVID-19 Vaccine (1 - 2023- season) 2023 Mammogram 02/07/2025 02/08/2024, 1206/2022, 10/14/2021, Additional history exists DTap/Tdap Vaccines (2 - [...] on patient's age to complete this topic Meningitis B Vaccine (Bexsero/Trumemba) Aged Out No longer eligible based on patient's age to complete this topic documented as of this encounter Medical Devices Not on filedocumented as of this encounter Visit Diagnoses Diagnosis Dyslipidemia, goal LDL below 100 Other and unspecified hyperlipidemia documented in this encounter Care Teams [place] Guide Relationship Specialty Start Date End Date Urban Johnson MD [address] [place] [address] PCP - General 01/24/05 documented as of this encounter
--- OUTSIDE RECORDS SUMMARY | 2024-05-30 09:09 | External Medical Summary | Summary of Care ---
Author Name Unknown Organization [facility] Address [address] [facility] [facility] [place] [address] Phone [phone] Care Team Providers Care Gut Snatcher Name Role Phone Clark Patiño MD Primary Care Provider +1- [phone] Reason for Visit * Reason Comments Follow Up Pt fell off of chair and hurt middle back. Encounter Details Date Type Department Care Team (Late st Contact Info) Description 02/29/2024 2:20 PM EST Office Visit General Internal Medicine [facility] [place] [address] [facility] [place] [address] Devora Swift PA-C [address] [facility] [place] [address] Fall from chair, initial encounter*; Contusion of left side of mid back, initial encounter; Contusion of right elbow, initial encounter Allergies No known active allergiesdocumented as of this encounter (statuses as of 02/29/2024) Medications valACYclovir HCl 1 GM Oral Tablet (Valtrex)Indica tions:Recurrent cold sores Take 1 Tablet by mouth in the morning. 90 Tablet 4 Active Atorvastatin Calcium 10 MG Oral Tablet (Lipitor)Indica tions:Dyslipide hamilton, goal LDL below 100 TAKE 1 TABLET IN THE MORNING 90 Tablet 3 4 Active Lisinopril-hydr oCHLOROthiazide 20-25 MG Oral Tablet Take 1 Tablet by mouth in the morning. 90 Tablet 3 4 Active Sertraline HCl 100 MG Oral Tablet (Zoloft) Take one and a half tablets by mouth daily 135 Tablet 3 4 Active Metoprolol Succinate ER 50 MG Oral Tablet Extended Release 24 Hour (toPROL XL)Indications: HTN, goal below 140/90,Elevated blood pressure, situational,Str ess at home Take 1 Tablet by mouth at bedtime. 90 Tablet 1 4 Active methylPREDNISol one 4 MG Oral Tablet Therapy Pack (Medrol Dosepack) follow package directions 21 Tablet 4 Active Cyclobenzaprine HCl 5 MG Oral Tablet (Flexeril) Take 1 Tablet by mouth 3 times a day as needed for Muscle spasms. 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 10/15/2009 Irritable bowel syndrome 09/29/2005 Major depressive disorder 09/29/2005 Overview (12/27/2016): ICD-10 update of inactive term documented as of this encounter (statuses as of 02/29/2024) Resolved Problems Problem Noted Date Diagnosed Date [...] as of this encounter (statuses as of 02/29/2024) Immunizations Name Administration Dates Next Due Influenza [...] Date Smoking Tobacco: Never Smokeless Tobacco: Never Tobacco Cessation:Counseling Given: Not Answered Comments:no passive smoke Alcohol Use Standard Drinks/Week [...] Sign Reading Time Taken Comments Blood Pressure 118/70 02/29/2024 2:16 PM EST Pulse 71 02/29/2024 2:16 PM EST Temperature 36.8 C (98.2 F) 02/29/2024 2:16 PM ES T Respiratory Rate - - Oxygen Saturation 97% 02/29/2024 2:16 PM EST Inhaled Oxygen Concentration - - Weight 81.7 kg (180 lb 3.2 oz) 02/29/2024 2:16 P M EST Height 170.2 cm (5' 7") 02/29/2024 2:16 PM EST Body Mass Index 28.22 02/29/2024 2:16 PM EST documented in this encounter Progress Notes * Devora Swift PA-C - 02/29/2024 2:24 PM EST Images from the original note were not included. History of Present Illness Marya Jones is a 53 year old female that presents for Follow Up (Pt fell off of chair and hurt middle back.) Fall The accident occurred 3 to 5 days ago. The fall occurred from a stool. She fell from a height of 3 to 5 ft. Impact surface: wall and hard floor. Point of impact: back and R elbow. The pain is presentin the back and right elbow. She has tried NSAID for the symptoms. The treatment provided mild relief. Review of Systems: See HPI for pertinent positives. All other review of systems is negative. Physical Exam Vitals: 02/29/24 1416 Temp: 98.2 F (36.8 C) Pulse: 71 SpO2: 97% BP: 118/70 BMI: 28.22 Physical Exam Constitutional: General: She is not in acute distress. Appearance: She is not diaphoretic. Cardiovascular: Rate and Rhythm: Normal rate and regular rhythm. Pulmonary: Effort: Pulmonary effort is normal. Breath sounds: Normal breath sounds. Musculoskeletal: Right elbow: Normal range of motion. No tenderness. Arms: Thoracic back: No tenderness or bony tenderness. Normal range of motion. Back: Comments: Contusion noted to L mid back Skin: General: Skin is warm and dry. Neurological: General: No focal deficit present. Mental Status: She is alert. Mental status is at baseline. I have reviewed the following results: Assessment and Plan Fall from chair, initial encounter Xrays given trauma to r/o bony injury. Rx for Medrol dosepak and PRN Flexeril sent. Discussed potential drowsiness with the muscle relaxer. Also encouraged heat/ice to the areas as well. Will notify of xray results when available. - XR T SPINE 2 VIEWS - XR ELBOW 3 OR MORE VIEWS Contusion of left side of mid back, initial encounter - XR T SPINE 2 VIEWS Contusion of right elbow, initial encounter - XR ELBOW 3 OR MORE VIEWS Wrap-Up Follow Up: Return if symptoms worsen or fail to improve. Time: I spent a total of 30-39 minutes (exact time 30 mins) on the date of service in preparation, delivery, and documentation of the care provided to Marya Jones excluding any time spent in the performance of separately billed services. documented in this encounter Nursing Notes * Chito Chester CMA - 02/29/2024 2:22 PM EST The patient has been properly identified by confirmation of name and date of . Chief Complaint Patient presents with Follow Up Pt fell off of chair and hurt middle back. documented in this encounter Plan of Treatment Scheduled Orders Name Type Priority Associated Diagnoses Orde r Schedule XR T SPINE 2 VIEWS Medical Imaging Routine Fall from chair, initial encounter Contusion of left side of mid back, initial encounter Ordered: 02/29/2024 XR ELBOW 3 OR MORE VIEWS Medical Imaging Routine Fall from chair, initial encounter Contusion of right elbow, initial encounter Ordered: 02/29/2024 Scheduled Procedures Name Priority Associated Diagnoses Date/Ti [...] exists COVID-19 Vaccine ( - season) 2023 Mammogram 02/07/2025 02/08/2024, 06/2022, 10/14/2021, Additional history exists DTap/Tdap Vaccines (2 [...] as of this encounter Visit Diagnoses Diagnosis Fall from chair, initial encounter- Primary Contusion of left side of mid back, initial encounter Contusion of right elbow, initial encounter documented in this encounter Care Teams Gut Snatcher Relationship Specialty Start Date End Date Clark Patiño MD PCP - General 01/24/05 documented as of this encounter
--- OUTSIDE RECORDS SUMMARY | 2024-05-30 09:09 | External Medical Summary | Summary of Care ---
Author Name Unknown Organization [facility] Address [address] [facility] [place] [address] Phone [phone] Care Team Providers Care Manager In Training Name Role Phone Clark Patiño MD Primary Care Provider +1- [phone] Encounter Details Date Type Department Care Team (Late st Contact Info) Description 01/26/2024 10:00 AM EST [facility] [address] [facility] [place] [address] Lorin Coughlin PA-C [address] [place] [address] HTN, goal below 140/90*; Elevated blood pressure, situational; Stress at home Allergies No known active allergiesdocumented as of this encounter (statuses as of 01/26/2024) Medications valACYclovir HCl 1 GM Oral Tablet [...] at bedtime. 90 Tablet 1 4 Active Omeprazole 20 MG Oral Capsule Delayed Release (PriLOSEC)Indic ations:Gastroes ophageal reflux disease without esophagitis TAKE 1 CAPSULE IN THE MORNING 1 HOUR BEFORE THE FIRST MEAL OF THE DAY 90 Capsule 3 4 024 Discontinued Metoprolol Succinate ER 25 MG Oral Tablet Extended Release 24 Hour (toPROL XL)Indications: HTN, goal below 140/90 Take 1 Tablet by mouth in the morning. 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 History of Present Illness Due to COVID 19 pandemic, this visit was done via video. Patient is established with the practice. Call start time: 1003 Patient location: HOME. I was in a hospital or clinic location. After connecting through [employer],patient was verified with two unique identifiers. Patient (or authorized legal footwear sales representative) was then informed that this was a Telemedicine visit and being conducted confidentially over secure lines. Methods to assure confidentiality were taken. Patient acknowledged consent and understanding of pr ivacy and security of the Telemedicine visit. The patient agreed to participate. Has been on new meds At her last appt, was noting some palpitations Wanted to try beta locker Less tense Bp down a little, no palpitations No negative side affects. Balance of meds is good Physical Exam There were no vitals filed for this visit. BP Readings from Last 3 Encounters: 01/13/24 142/82 09/27/23 140/80 09/05/23 132/84 Wt Readings from Last 3 Encounters: 01/13/24 178 lb 1.6 oz (80.8 kg) 08/29/23 178 lb 6.4 oz (80.9 kg) 07/12/23 176 lb (79.8 kg) BMI Readings from Last 3 Encounters: 01/13/24 27.89 kg/m 08/29/23 27.94 kg/m 07/12/23 27.57 kg/m Ht Readings from Last 3 Encounters: 01/13/24 5' 7" (1.702 m) 08/29/23 5' 7" (1.702 m) 07/12/23 5' 7" (1.702 m) Assessment and Plan HTN, goal below 140/90 (Primary) - Metoprolol Succinate ER 50 MG Oral Tablet Extended Release 24 Hour (toPROL XL); Take 1 Tablet by mouth at bedtime. Elevated blood pressure, situational - Metoprolol Succinate ER 50 MG Oral Tablet Extended Release 24 Hour (toPROL XL); Take 1 Tablet by mouth at bedtime. Stress at home - Metoprolol Succinate ER 50 MG Oral Tablet Extended Release 24 Hour (toPROL XL); Take 1 Tablet by mouth at bedtime. Dose increase Rev how to take Move to bedtime Wrap-Up Rev Dr Villanueva note 01/13/2024 Discuss with patient Time: I spent a total of 10-19 minutes (exact time 15 mins) on the date of service in preparation, delivery, and documentation of the care provided to Marya Jones excluding any time spent in the performance of separately billed services. Lorin Coughlin PA-C 01/26/2024 10:08 AM documented in this encounter Plan of Treatment Upcoming Encounters Date Type Department Care Team (Late st Contact Info) Description 02/08/2024 3:00 PM EST Imaging Radiology [address] [place] [address] Scheduled Procedures Name Priority Associated Diagnoses Date/Ti [...] as of this encounter Visit Diagnoses Diagnosis HTN, goal below 140/90- Primary Unspecified essential hypertension Elevated blood pressure, situational Elevated blood pressure reading without diagnosis of hypertension Stress at home Unspecified family circumstance documented in this encounter Care Teams Manager In Training Relationship Specialty Start Date End Date Clark Patiño MD [address] [place] [address] PCP - General 01/24/05 documented as of this encounter
--- OUTSIDE RECORDS SUMMARY | 2024-05-30 09:09 | External Medical Summary | Summary of Care ---
Author Name Unknown Organization [facility] Address [address] [facility] [place] [address] Phone [phone] Care Team Providers Care Tire And Tube Repairer Name Role Phone Clark Patiño MD Primary Care Provider [phone]- [phone] Reason for Visit * Reason Comments New Med Request Encounter Details Date Type Department Care Team (Late st Contact Info) Description 03/19/2024 Refill [facility] Johnny Serrano [address] [place] [address] Lorin Coughlin PA-C [address] [address] HTN, goal below 140/90; Elevated blood pressure, situational; Stress at home Allergies No known active allergiesdocumented as of this encounter (statuses as of 03/20/2024) Medications valACYclovir HCl 1 GM Oral Tablet (Valtrex)Indic ations:Recurre nt cold sores Take 1 Tablet by mouth in the morning. 90 Tablet 03/15/19 24 Active Atorvastatin Calcium 10 MG Oral Tablet (Lipitor)Indic ations:Dyslipi demia, goal LDL below 100 TAKE 1 TABLET IN THE MORNING 90 Tablet 3 08/17/19 24 Active Lisinopril-hyd roCHLOROthiazi de 20-25 MG Oral Tablet Take 1 Tablet by mouth in the morning. 90 Tablet 3 09/28/19 24 Active Sertraline HCl 100 MG Oral Tablet (Zoloft) Take one and a half tablets by mouth daily 135 Tablet 3 10/04/19 24 Active methylPREDNISo lone 4 MG Oral Tablet Therapy Pack (Medrol Dosepack) follow package directions 21 Tablet 02/29/20 24 Active Cyclobenzaprin e HCl 5 MG Oral Tablet (Flexeril) Take 1 Tablet by mouth 3 times a day as needed for Muscle spasms. 20 Tablet 02/29/20 24 Active Metoprolol Succinate ER 50 MG Oral Tablet Extended Release 24 Hour (toPROL XL)Indications :HTN, goal below 140/90,Elevate d blood pressure, situational,St ress at home TAKE 1 TABLET BY MOUTH AT BEDTIME 90 Tablet 1 03/20/19 25 Active Metoprolol Succinate ER 50 MG Oral Tablet Extended Release 24 Hour (toPROL XL)Indications :HTN, goal below 140/90,Elevate d blood pressure, situational,St ress at home Take 1 Tablet by mouth at bedtime. 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 10/15/2009 Irritable bowel syndrome 09/29/2005 Major depressive disorder 09/29/2005 Overview (12/27/2016): ICD-10 update of inactive term documented as of this encounter (statuses as of 03/20/2024) Resolved Problems Problem Noted Date Diagnosed Date [...] as of this encounter (statuses as of 03/20/2024) Immunizations Name Administration Dates Next Due Influenza [...] encounter Miscellaneous Notes * Telephone Encounter - Cara Reed, [facility] - 03/20/2024 8:11 AM ESTSigned Prescriptions: Disp Refills Metoprolol Succinate ER 50 MG Oral Tablet *90 Tab*1 Sig: TAKE 1 TABLET BY MOUTH AT BEDTIMEAuthorizing Provider: LORIN COUGHLIN User: CARA REED documented in this encounter Plan of Treatment [...] Additional history exists COVID-19 Vaccine ( - 2023- season) 2023 Mammogram 02/07/2025 02/08/2024, 06/2022, 10/14/2021, [...] encounter Visit Diagnoses Diagnosis HTN, goal below 140/90 Unspecified essential hypertension Elevated blood pressure, situational Elevated blood pressure reading without diagnosis of hypertension Stress at home Unspecified family circumstance documented in this encounter Care Teams Tire And Tube Repairer Relationship Specialty Start Date End Date Clark Patiño MD PCP - General 01/24/05 documented as of this encounter
--- OUTSIDE RECORDS SUMMARY | 2024-05-30 09:09 | External Medical Summary | Summary of Care ---
Author Name Unknown Organization [facility] Address [address] [facility] [place] [address] Phone [phone] Care Team Providers Care School Laboratory Technician Name Role Phone Clark Patiño MD Primary Care Provider +1- [phone] Encounter Details Date Type Department Care Team (Late st Contact Info) Description 01/16/2024 Orders Only PATIENT PORTAL DO NOT DELETE THIS DEPT USED BY [place] [id number] Allergies No known active allergiesdocumented as of this encounter (statuses as of 01/16/2024) Medications valACYclovir HCl 1 GM Oral Tablet [...] as of this encounter (statuses as of 01/16/2024) Active Problems Problem Noted Date Diagnosed Date Recurrent major depressive disorder 02/04/2022 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 10/15/2009 Irritable bowel syndrome 09/29/2005 Major depressive disorder 09/29/2005 Overview (12/27/2016): ICD-10 update of inactive term documented as of this encounter (statuses as of 01/16/2024) Resolved Problems Problem Noted Date Diagnosed Date [...] as of this encounter (statuses as of 01/16/2024) Immunizations Name Administration Dates Next Due Influenza [...] on file documented as of this encounter Plan of Treatment Upcoming Encounters Date Type Department Care Team (Late st Contact Info) Description 01/16/2024 1:20 PM EST Telemedicine [facility] [address] [place] [facility] [place] [id number] JulyBairon MD [address] [place] [facility] [place] [address] 02/08/2024 3:00 PM EST Imaging Radiology [facility] [address] [facility] [place] [address] [facility] [place] [address] Scheduled Procedures Name Priority [...] COVID-19 Vaccine ( - season) 2023 Mammogram 02/07/2024 02/06/2023, 10/04, 09/21/2021, [...] Not on filedocumented as of this encounter Care Teams School Laboratory Technician Relationship Specialty Start Date End Date Clark Patiño MD [address] [place] [address] PCP - General 01/24/05 documented as of this encounter
--- OUTSIDE RECORDS SUMMARY | 2024-05-30 09:09 | External Medical Summary | Summary of Care ---
Author Name Unknown Organization [facility] Address [address] [facility] [place] [address] Phone [phone] Care Team Providers Care Seismic Survey Assistant Name Role Phone Clark Patiño MD Primary Care Provider +1- [phone] Reason for Visit * Reason Comments Acute Was bending over to get a ahumaad out of the cupboard on Monday and threw out back Encounter Details Date Type Department Care Team (Late st Contact Info) Description 04/17/2024 9:00 AM EST [facility] [address] [facility] [place] [address] JulyBairon MD [address] [facility] [place] [address] Strain of lumbar region, initial encounter*; Recurrent major depressive disorder, remission status unspecified (HCC) Allergies No known active allergiesdocumented as of this encounter (statuses as of 04/17/2024) Medications valACYclovir HCl 1 GM Oral Tablet (Valtrex)Indicat ions:Recurrent cold sores Take 1 Tablet by mouth in the morning. 90 Tablet 03/15/2023 Active Atorvastatin Calcium 10 MG Oral Tablet (Lipitor)Indicat ions:Dyslipidemi a, goal LDL below 100 TAKE 1 TABLET IN THE MORNING 90 Tablet 3 08/17/2023 Active Lisinopril-hydro CHLOROthiazide 20-25 MG Oral Tablet Take 1 Tablet by mouth in the morning. 90 Tablet 3 09/28/2023 Active Sertraline HCl 100 MG Oral Tablet (Zoloft) Take one and a half tablets by mouth daily 135 Tablet 3 10/04/2023 Active Metoprolol Succinate ER 50 MG Oral Tablet Extended Release 24 Hour (toPROL XL)Indications:H TN, goal below 140/90,Elevated blood pressure, situational,Stre ss at home TAKE 1 TABLET BY MOUTH AT BEDTIME 90 Tablet 1 03/20/2024 Active Meloxicam 15 MG Oral TabletIndication s:Fall from chair, subsequent encounter Take 1 Tablet by mouth in the morning. for pain.. 10 Tablet 04/01/2024 Active Omeprazole 20 MG Oral Capsule Delayed Release (PriLOSEC)Indica tions:Gastroesop hageal reflux disease without esophagitis Take 1 Capsule by mouth in the morning. 1 hour before the first meal of the day. 90 Capsule 3 04/08/2024 Active Cyclobenzaprine HCl 5 MG Oral Tablet (Flexeril)Indica tions:Fall from chair, subsequent encounter Take 1 Tablet by mouth 3 times a day as needed for Muscle spasms. 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 10/15/2009 Irritable bowel syndrome 09/29/2005 Major depressive disorder 09/29/2005 Overview (12/27/2016): ICD-10 update of inactive term documented as of this encounter (statuses as of 04/17/2024) Resolved Problems Problem Noted Date Diagnosed Date [...] as of this encounter (statuses as of 04/17/2024) Immunizations Name Administration Dates Next Due Influenza [...] Sign Reading Time Taken Comments Blood Pressure 120/80 04/17/2024 9:15 AM EST Pulse 76 04/17/2024 9:15 AM EST Temperature 37.1 C (98.7 F) 04/17/2024 9:15 AM ES T Respiratory Rate 16 04/17/2024 9:15 AM EST Oxygen Saturation - - Inhaled Oxygen Concentration - - Weight 83 kg (183 lb) 04/17/2024 9:15 AM EST Height - - Body Mass Index 28.66 02/29/2024 2:16 PM EST documented in this encounter Progress Notes * Bairon Brown MD - 04/17/2024 9:24 AM EST Images from the original note were not included. Subjective Marya Jones is a 53 year old female that presents for Acute (Was bending over to get a ahumada out of the cupboard on Monday and threw out back ) History of Present Illness Marya Jones is a 53 year old female who presents with lumbar low back pain. The lumbar low back pain began recently after she bent down while preparing for the Super Bowl. Thepain is located in the left lumbar region, described as 'way low', and is exacerbated by movement. It has improved over time, but she still experiences difficulty walking. Notably, the pain is absentwhen pressure is applied to the area. She is currently taking Flexeril, which she picked up a few days ago, and it has been effective in managing her symptoms. The pain has impacted her daily activities, as her daughter had to prepare all the snacks for the [employer] Bowl due to her inability to do so. She requires a work note due to her condition. She has her first physical therapy session scheduled for today. Objective Vitals: 04/17/24 0915 Temp: 98.7 F (37.1 C) Pulse: 76 Resp: 16 BP: 120/80 Physical Exam MUSCULOSKELETAL: Lumbar region without tenderness upon palpation. No pain upon palpation of the thoracic and lumbar spine. Antalgic gait. SKIN: No rashes observed in the lumbar region. Physical Exam Vitals reviewed. Constitutional: General: She is not in acute distress. Pulmonary: Effort: Pulmonary effort is normal. No respiratory distress. Neurological: General: No focal deficit present. Mental Status: She is alert. I have reviewed the following results: Results Assessment and Plan Assessment & Plan Lumbar Low Back Pain Acute exacerbation of chronic low back pain. Pain is localized to the lower lumbar region, exacerbated by movement. No radicular symptoms. Flexeril providing some relief. -Administer Toradol injection today for additional pain control and anti- inflammatory effect. -Continue Flexeril as prescribed. -Off work through the end of the week. -Encourage attendance at physical therapy session today, focusing on non- strenuous modalities such as massage and TENS unit. Irritable Bowel Syndrome and Depression No new concerns or changes discussed. -Continue current management. Strain of lumbar region, initial encounter (Primary) - keTORolac (Toradol) 60 MG/2ML IM inj 60 mg - RETURN TO WORK OR SCHOOL Recurrent major depressive disorder, remission status unspecified (HCC) - Stable on sertraline. Wrap-Up Follow Up: Return if symptoms worsen or fail to improve. Text in this note was generated using an [employer] documentation service. I discussed the use of a device to record and summarize our discussion today. All persons present during the encounter consented to its use. documented in this encounter Nursing Notes * Ana Maria Potts LPN - 04/17/2024 9:15 AM EST The patient has been properly identified by confirmation of name and date of . Chief Complaint Patient presents with Acute Was bending over to get a ahumada out of the cupboard on Monday and threw out back documented in this encounter Plan of Treatment [...] Additional history exists COVID-19 Vaccine (1 - season) 2023 Mammogram 02/07/2025 02/08/2024, 12/0 06/2022, 10/14/2021, Additional history exists DTap/Tdap Vaccines [...] as of this encounter Visit Diagnoses Diagnosis Strain of lumbar region, initial encounter- Primary Recurrent major depressive disorder, remission status unspecified (HCC) documented in this encounter Administered Medications Inactive Administered Medications - up to 3 most recent administrations Medication Order MAR Action Action Date Dose Rate Site keTORolac (Toradol) 60 MG/2ML IM inj 60 mg 60 mg, Intramuscular, ONCE, On Mon04/17/24 at 1015, For 1 doseIndications:Strain of lumbar region, initial encounter Given 04/17/2024 9:39 AM EST 60 mg Dorsogluteal Left documented in this encounter Care Teams Seismic Survey Assistant Relationship Specialty Start Date End Date Clark Patiño MD [address] [address] PCP - General 01/24/05 documented as of this encounter
--- OUTSIDE RECORDS SUMMARY | 2024-05-30 09:09 | External Medical Summary | Summary of Care ---
Author Name Unknown Organization [facility] [address] [facility] [address] Phone [phone] Care Team Providers Care Engraver Tire Mold Name Role Phone Clark Patiño MD Primary Care Provider +1- [phone] Reason for Visit * Reason Onset Date Comments Medication Refill 05/01/2024 Encounter Details Date Type Department Care Team (Late st Contact Info) Description 05/01/2024 [facility] [address] [place] [phone] July, Bairon Patel MD [address] [facility] [place] [address] Fall from chair, subsequent encounter Allergies No known active allergiesdocumented as of this encounter (statuses as of 05/03/2024) Medications valACYclovir HCl 1 GM Oral Tablet [...] the day. 90 Capsule 3 5 Active Atorvastatin Calcium 10 MG Oral Tablet (Lipitor)Indicat ions:Dyslipidemi a, goal LDL below 100 Take 1 Tablet by mouth in the morning. 90 Tablet 5 Active Cyclobenzaprine HCl 5 MG Oral Tablet (Flexeril)Indica tions:Fall from chair, subsequent encounter Take 1 Tablet by mouth 3 times a day as needed for Muscle spasms. 20 Tablet 5 Active Cyclobenzaprine HCl 5 MG Oral Tablet (Flexeril)Indica tions:Fall from chair, subsequent encounter Take 1 Tablet by mouth 3 times a day as needed for Muscle spasms. 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 10/15/2009 Irritable bowel syndrome 09/29/2005 Major depressive disorder 09/29/2005 Overview (12/27/2016): ICD-10 update of inactive term documented as of this encounter (statuses as of 05/03/2024) Resolved Problems Problem Noted Date Diagnosed Date [...] as of this encounter (statuses as of 05/03/2024) Immunizations Name Administration Dates Next Due Influenza [...] encounter Miscellaneous Notes * Telephone Encounter - Lorin Coughlin PA-C - 05/02/2024 4:46 PM ESTSigned Prescriptions: Disp Refills Cyclobenzaprine HCl 5 MG Oral Tablet (Flex*20 Tab*0 Sig: Take 1 Tablet by mouth 3 times a day as needed for Muscle spasms. Authorizing Provider: LORIN COUGHLIN * Telephone Encounter - Kailey Skinner LPN - 05/02/2024 1:34 PM ESTPending Prescriptions: Disp Refills Cyclobenzaprine HCl 5 MG Oral Tablet (Flex*20 Tab*0 Sig: Take 1 Tablet by mouth 3 times a day as needed for Muscle spasms. * Telephone Encounter - Jerry Tay - 05/01/2024 2:04 PM ESTPending Prescriptions: Disp Refills Cyclobenzaprine HCl 5 MG Oral Tablet (Flex*20 Tab*0 Sig: Take 1Tablet by mouth 3 times a day as needed for Muscle spasms. documented in this encounter Plan of Treatment [...] 03/06, 03/24/2015, Additional history exists COVID-19 Vaccine (2023- season) 2023 Mammogram 02/07/2025 02/08/2024, 12/0 06/2022, [...] encounter Visit Diagnoses Diagnosis Fall from chair, subsequent encounter documented in this encounter Care Teams Engraver Tire Mold Relationship Specialty Start Date End Date Clark Patiño MD [address] [address] PCP - General 01/24/05 documented as of this encounter
--- OUTSIDE RECORDS SUMMARY | 2024-05-30 09:09 | External Medical Summary | Summary of Care ---
Author Name Unknown Organization [facility] Address [address] [place] [address] Phone [phone] Care Team Providers Care Mediation Commissioner Name Role Phone Clark Patiño MD Primary Care Provider [phone]- [phone] Reason for Referral * Evaluate & Treat - Unlimited Visits (Within 10 days (routine)) - Authorized Specialty Diagnoses / Procedures Referred By Lorena michaels Referred To Contact Physical Therapy / Physical Medicine And Rehab Diagnoses Fall from chair, subsequent encounter Bairon Brown MD [address] [address] Phone: tel: fax: Referral ID Status Reason Start Date Expiration Date Visits Requested Visits Authorized [id number] Authorized Specialty Services Required 04/08/[phone] Question Answer Referral Priority Within 10 days (routine) Where should this appointment be scheduled? External - [place] Comments Neck and thoracic back pain. Reason for Visit * Reason Comments Acute Back pain, fell off a chair at [facility] Encounter Details Date Type Department Care Team (Latest Contact Info) Description 04/08/2024 1:20 PM EST Office Visit [facility] Johnny Desir [address] [phone] Bairon Brown MD [address] [phone] Gastroesophageal reflux disease without esophagitis*; Fall from chair, subsequent encounter; Recurrent major depressive disorder, remission status unspecified (HCC) Allergies No known active allergiesdocumented as of this encounter (statuses as of 04/09/2024) Medications valACYclovir HCl 1 GM Oral Tablet [...] 140/90,Elevated blood pressure, situational,Str ess at home TAKE 1 TABLET BY MOUTH AT BEDTIME 90 Tablet 1 5 Active Meloxicam 15 MG Oral TabletIndicatio ns:Fall from chair, subsequent encounter Take 1 Tablet by mouth in the morning. for pain.. 10 Tablet 5 Active Omeprazole 20 MG Oral Capsule Delayed Release (PriLOSEC)Indic ations:Gastroes ophageal reflux disease without esophagitis Take 1 Capsule by mouth in the morning. 1 hour before the first meal of the day. 90 Capsule 3 5 Active Cyclobenzaprine HCl 5 MG Oral Tablet (Flexeril)Indic ations:Fall from chair, subsequent encounter Take 1 Tablet by mouth 3 times a day as needed for Muscle spasms. 20 Tablet 5 Active methylPREDNISol one 4 MG Oral Tablet Therapy Pack (Medrol Dosepack) follow package directions 21 Tablet 4 04/08/19 25 Discontin ued(Medic ation List Clean Up) Cyclobenzaprine HCl 5 MG Oral Tablet (Flexeril)Indic ations:Fall from chair, subsequent encounter Take 1 Tablet by mouth 3 times a day as needed for Muscle spasms. 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 10/15/2009 Irritable bowel syndrome 09/29/2005 Major depressive disorder 09/29/2005 Overview (12/27/2016): ICD-10 update of inactive term documented as of this encounter (statuses as of 04/09/2024) Resolved Problems Problem Noted Date Diagnosed Date [...] as of this encounter (statuses as of 04/09/2024) Immunizations Name Administration Dates Next Due Influenza [...] Sign Reading Time Taken Comments Blood Pressure 120/70 04/08/2024 1:32 PM EST Pulse 76 04/08/2024 1:32 PM EST Temperature 36.8 C (98.2 F) 04/08/2024 1:32 PM ES T Respiratory Rate 16 04/08/2024 1:32 PM EST Oxygen Saturation - - Inhaled Oxygen Concentration - - Weight 81.6 kg (180 lb) 04/08/2024 1:32 PM EST Height - - Body Mass Index 28.19 02/29/2024 2:16 PM EST documented in this encounter Progress Notes * Bairon Brown MD - 04/08/2024 1:39 PM EST Images from the original note were not included. Subjective Marya Jones is a 53 year old female that presents for Acute (Back pain, fell off a chair at [facility]) History of Present Illness Marya Jones is a 53 year old female who presents with follow-up after a fall- related thoracic back pain. 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 At that time, she was prescribed steroids and a muscle relaxer. An X-ray of the thoracic spine showed no fracture. Despite ongoing treatment, her pain has continued to progress. The pain is located across the thoracic region, slightly higher than the bra line, and does not radiate to the front or down towards thehips or lower back. 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 She does not experience pain while sitting. No pain along the spine, bruising, or rashes in the thoracic area. She is currently taking muscle relaxers, which she finds effective for pain relief and sleep, although they make her slightly tired. She does not require additional pain medication. She also takes omeprazole for heartburn, which recently stopped refilling, and she prefers to have it sent through [facility]. Objective Vitals: 04/08/24 1332 Temp: 98.2 F (36.8 C) Pulse: 76 Resp: 16 BP: 120/70 Physical Exam VITALS: Blood pressure within normal limits. MUSCULOSKELETAL: No bruising or rashes observed across the thoracic spine. No pain to palpation of the spinous processes in the cervical, thoracic, or lumbar region. Ambulating without difficulty. I have reviewed the following results: Results RADIOLOGY Thoracic spine X-ray: No fracture (02/29/2024) Assessment and Plan Assessment & Plan Thoracic Back Pain Pain improved but persistent after fall from chair on 02/29/2024. No spinal tenderness or bruising.Pain is not radiating and is activity-dependent. No signs of shingles or fracture on X-ray. -Refer to physical therapy for neck and thoracic back pain with focus on strengthening exercises. -Continue Flexeril as needed for pain, with caution regarding potential drowsiness and impact on driving. Gastroesophageal Reflux Disease Patient has been on long-term omeprazole therapy. -Refill omeprazole prescription via [facility]. Follow-up Monitor response to physical therapy. If no improvement, consider referral to sports medicine or interventional pain management. Gastroesophageal reflux disease without esophagitis (Primary) - Omeprazole 20 MG Oral Capsule Delayed Release (PriLOSEC); Take 1 Capsule by mouth in the morning.1 hour before the first meal of the day. Fall from chair, subsequent encounter - Cyclobenzaprine HCl 5 MG Oral Tablet (Flexeril); Take 1 Tablet by mouth 3 times a day as needed for Muscle spasms. - PHYSICAL THERAPY REFERRAL OP Recurrent major depressive disorder, remission status unspecified (HCC) - Stable on sertraline 100 mg daily. No changes to medication. Wrap-Up Follow-up: Return if symptoms worsen or fail to improve. | Check-out note: Help with PT referral. Bairon Brown MD Text in this note was generated using an [employer] documentation service. I discussed the use of a device to record and summarize our discussion today. All persons present during the encounter consented to its use. documented in this encounter Nursing Notes * Ana Maria Potts LPN - 04/08/2024 1:32 PM EST The patient has been properly identified by confirmation of name and date of . Chief Complaint Patient presents with Acute Back pain, fell off a chair at [place] time documented in this encounter Plan of Treatment Scheduled Procedures Name Priority Associated Diagnoses Date/Ti me COLONOSCOPY FLEXIBLE PROXIMAL DIAGNOSTIC Recall Screen for colon cancer Scheduled Referrals Name Type Priority Associated Diagnoses Orde r Schedule PHYSICAL THERAPY REFERRAL OP Referral Within 10 days (routine) Fall from chair, subsequent encounter Ordered: 04/08/2024 Health Maintenance Due Date Last Done Comments [...] Vaccine (2023- season) 2023 Mammogram 02/07/2025 02/08/2024, 120 06/2022, 10/14/2021, Additional history exists DTap/Tdap Vaccines [...] as of this encounter Visit Diagnoses Diagnosis Gastroesophageal reflux disease without esophagitis- Primary Esophageal reflux Fall from chair, subsequent encounter Recurrent major depressive disorder, remission status unspecified (HCC) documented in this encounter Care Teams Mediation Commissioner Relationship Specialty Start Date End Date Clark Patiño MD PCP - General 01/24/05 documented as of this encounter"
--- OUTSIDE RECORDS SUMMARY | 2024-05-30 09:09 | External Medical Summary | Summary of Care ---
Author Name Unknown Organization [facility] Address [address] [facility] [place] [address] Phone [phone] Care Team Providers Care Dryer And Washer Mechanic Name Role Phone Clark Patiño MD Primary Care Provider +1- [phone] Reason for Visit * Reason Comments Acute Was bending over to get a ahumada out of the cupboard on Monday and threw out back Encounter Details Date Type Department Care Team (Late st Contact Info) Description 04/17/2024 9:00 AM EST [facility] [address] [facility] [facility] [address] [place] [phone] JulyBairon MD [address] [facility] [address] [place] [address] Strain of lumbar region, [...] in this note was generated using an [employer] documentation service. I discussed the use of [...] Left documented in this encounter Care Teams Dryer And Washer Mechanic Relationship Specialty Start Date End Date Clark Patiño MD [address] [address] PCP - General 01/24/05 documented as of this encounter
--- OUTSIDE RECORDS SUMMARY | 2024-05-30 09:10 | External Medical Summary | Summary of Care ---
Author Name Unknown Organization [facility] Address [address] [place] [address] Phone [phone] Care Team Providers Care Director Of Engineering Name Role Phone Clark Patiño MD Primary Care Provider +1- [phone] Reason for Visit * Reason Onset Date Comments Health Maintenance 12/21/2023 Encounter Details Date Type Department Care Team (Late st Contact Info) Description 12/21/2023 Telephone [facility] [place] [address] [place] [address] Clark Patiño MD [address] [place] [address] Health Maintenance Allergies No known active allergiesdocumented as of this encounter (statuses as of 12/21/2023) Medications Medication Sig Dispensed Refills Start Date [...] as of this encounter (statuses as of 12/21/2023) Active Problems Problem Noted Date Diagnosed Date Recurrent major depressive disorder 02/04/2022 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 10/15/2009 Irritable bowel syndrome 09/29/2005 Major depressive disorder 09/29/2005 Overview: ICD-10 update of inactive term documented as of this encounter (statuses as of 12/21/2023) Resolved Problems Problem Noted Date Diagnosed Date [...] as of this encounter (statuses as of 12/21/2023) Immunizations Name Administration Dates Next Due Influenza [...] encounter Miscellaneous Notes * Telephone Encounter - Radha RubioLOBO - 12/21/2023 3:03 PM EDT Care Gaps Comprehensive Care Outreach Last Office/Telemedicine Visit: 08/29/2023 (in office), 03/14/2022 (telemedicine) Next Office Visit: Visit date not found Hemoglobin AIC Results: No results found for: "HEMOGLOBIN A1C" BP Readings from Last 1 Encounters: 09/27/23 140/80 Reviewed Health Maintenance below: Health Maintenance Topic Date Due HIV Screening Never done Hepatitis B Vaccine (1 of 3 - 19+ 3-dose series) Never done Zoster Vaccines (1 of 2) Never done Depression Monitoring 11/22/2019 Cervical Cancer Screening 04/17/2022 Influenza Vaccine (FLU shot) (1) 11/05/2023 COVID-19 Vaccine ( season) Never done Mammogram 02/07/2024 Ov already scheduled Pap Mamm dec 4 scheduled Care Gap Outreach Action Taken: Spoke to patient documented in this encounter Plan of Treatment Upcoming Encounters Date Type Department Care Team (Late st Contact Info) Description 01/13/2024 2:00 PM EST Office Visit Family Practice [facility] [address] [facility] [address] [place] [id number] Clark Patiño MD [address] [place] [address] 02/08/2024 3:00 PM EST Imaging Radiology [facility] [address] [facility] [address] [facility] [address] [place] [address] Scheduled Orders Name Type Priority Associated Diagnoses Orde r Schedule MAMMOGRAM SCREENING EL BILATERAL Medical Imaging Routine Encounter for screening mammogram for malignant neoplasm of breast Expected: 12/21/2023, Expires: 01/20/2025 Scheduled Procedures Name Priority Associated Diagnoses Date/Ti [...] history exists COVID-19 Vaccine ( season) 2023 Influenza Vaccine (FLU shot) (#1) [...] as of this encounter Visit Diagnoses Diagnosis Encounter for screening mammogram for malignant neoplasm of breast- Primary Other screening mammogram documented in this encounter Care Teams Director Of Engineering Relationship Specialty Start Date End Date Clark Patiño MD [address] [place] [address] PCP - General 01/24/05 documented as of this encounter
[2024-05-30] MEDS: ONDANSETRON INJ 2 MG/ML 2 ML VIAL IV PRN (10:48)
[2024-05-30] MEDS: ACETAMINOPHEN 325 MG TAB PO PRN (10:48)
[2024-05-30 11:07] VITALS: BP 143/96; RESP 18; TEMP 98.1; O2SAT 95
--- NOTE | 2024-05-30 12:13 | Electrocardiogram Report ---
Test Reason : Blood Pressure : */* mmHG Vent. Rate : 112 BPM Atrial Rate : 112 BPM P-R Int : 182 ms QRS Dur : 86 ms QT Int : 334 ms P-R-T Axes : 69 10 101 degrees QTcB Int : 455 ms Sinus tachycardia Left ventricular hypertrophy with repolarization abnormality ( R in aVL ) Abnormal ECG When compared with ECG of 27-Aug-2006 16:02, Vent. rate has increased by [address] now depressed in Lateral leads T wave inversion now evident in Lateral leads Confirmed by Paul Cordova ([id number]) on 05/30/2024 12:12:38 PM Referred By: Louisa Sotelo Confirmed By: Paul Cordova
[2024-05-30] MEDS: LACTATED RINGER'S 500 ML IV ONE (12:15)
--- NOTE | 2024-05-30 12:21 | Electrocardiogram Report ---
Test Reason : Blood Pressure : */* mmHG Vent. Rate : 85 BPM Atrial Rate : 85 BPM P-R Int : 204 ms QRS Dur : 80 ms QT Int : 384 ms P-R-T Axes : 54 24 90 degrees QTcB Int : 456 ms Normal sinus rhythm T wave abnormality, consider lateral ischemia Abnormal ECG When compared with ECG of 29-May-2024 18:09, (unconfirmed) No significant change was found Confirmed by Paul Cordova ([id number]) on 05/30/2024 12:20:44 PM Referred By: Louisa Sotelo Confirmed By: Paul Cordova
[2024-05-30 13:43] VITALS: PULSE 89
--- NOTE | 2024-05-30 15:35 | Discharge Summary ---
Discharge Summary Date of Service May 30, 2024 Principal Dx & Hospital Course #1 = Principal Diagnosis (1) Nausea & vomiting: Secondary to compounded online semaglutide Discontinue this medication IV fluids given Zofran as needed Advance diet slowly (2) Anorexia: Discontinue semaglutide (3) Depression: Stable Continue sertraline (4) HTN (hypertension): Continue prior to admission antihypertensives Follow blood pressures May need to adjust medications Check echocardiogram to assess for LVH (5) EKG abnormalities: Consult cardiology EKG repeat Echocardiogram LVH suggests uncontrolled HTN (6) Elevated troponin: Trend troponins Calcium is elevated. Will check ionized calcium and TSH UA looks positive. Cultures pending. She has no urinary symptoms VTE prophylaxis: Patient is low risk for now. Encourage ambulation Patient is a full code Total of 77 minutes spent in the direct care of this patient Notes For Next Care Provider Marya Jones is a 53-year-old female with a past medical history of depression, hypertension, anxiety, heart murmur and GERD. She presents to the ER from her PCP office for intractable nausea and vomiting and notes that she cannot eat. She was started on semaglutide. This was a compounded formulation that she got online at 2.5 mg. ON medicine, given fluids and zofran with improvement. Discussed need to stop compounded semaglutide. Tolerating solid food at time of discharge, medically stable for discharge at this time. Medication Changes From Visit -zofran Admission HPI Per Admitting Provider Marya Jones is a 53-year-old female with a past medical history of depression, hypertension, anxiety, heart murmur and GERD. She presents to the ER from her PCP office for intractable nausea and vomiting and notes that she cannot eat. She was started on semaglutide. This was a compounded formulation that she got online at 2.5 mg. Her first dose was on 05/18/2024. Second dose was on 05/25/2024. She tolerated the first dose without too much difficulty but after the second dose she has had significant nausea for the past week along with vomiting. She has been able to eat or drink much at all. She feels like she has a bubble in her chest. She states overall she has lost about 15 pounds. She denies any headache or change in vision. No chest pain or exertional chest pain or shortness of breath. No belly pain. No dysuria urgency or frequency. No arm pain or jaw pain. No other exacerbating or remitting factors. EKG in the office showed LVH and lateral T wave changes which were new. This was confirmed on EKG in the ED. Her troponin was mildly elevated at 16.8 in the ED. Repeat was 14.4. Calcium was 11.1. CT scan of the abdomen without acute abnormalities. Patient was given IV fluids in the ED. BP was initially high but has come down in the ED. UA looks positive. Culture pending but no urinary complaints Discharge Exam Gen: A&O 3 NAD HEENT: NCAT, EOMI, not icteric. External ears normal. No rhinorrhea. Moist mucous membranes. Neck: Supple, full range of motion, no observable masses, No meningeal sign. Lungs: No Respiratory distress. CV: RRR, no edema. Abdomen: Soft, nondistended, No rebound tenderness. MSK: No joint swelling, no redness. Skin: No rashes, petechiae, lesions. Normal color per patient. Neuro: Normal Gait, Grossly intact. Psych: Appropriate for situation. Updated Medication List Medication Instructions Recorded Confirmed Type atorvastatin 10 mg tablet 10 mg PO DAILY 05/29/24 05/29/24 History lisinopril 20 1 tab PO DAILY 05/29/24 05/29/24 History mg-hydrochlorothiazide 25 mg tablet metoprolol succinate 50 mg 50 mg PO DAILY 05/29/24 05/29/24 History tablet,extended release 24 hr omeprazole 20 mg capsule,delayed 20 mg PO DAILY 05/29/24 05/29/24 History release sertraline 100 mg tablet 150 mg PO QAM 05/29/24 05/29/24 History ondansetron 4 mg disintegrating 4 mg PO DAILY PRN nausea and 05/30/24 Rx tablet vomiting 7 days #20 tabs Hospital Stay Data Consultations 05/29/24 20:46 ED Decision to Admit Stat Diagnostic Imagining Performed 05/29/24 18:51 CT Abd and Pelvis [CT abd pelvis IV con only] Stat Pending Results Patient Have Any Pending Studies at Discharge: No Discharge Instructions Given to Patient (Per Discharging Provider) 1. Please take zofran for nausea/vomiting. 2. Please follow up with PCP, stop taking GLP-1 medication. Total Time Total Time Spent Total Time Spent (In Minutes): I spent a total of 35 minutes in direct patient care, including [id number] time with the patient and/or family, reviewing medical records, ordering and reviewing diagnostic tests, and coordinating care with other healthcare providers. This time includes: history taking, physical examination, medical decision making, counseling, ECG interpretation, imaging interpretation, lab interpretation, orders, and education, excluding time spent in the performance of separately billed services.
== END 2024-05-30 13:58 | disposition home or self-care (01) | DRG 392 ==
LOC: ED 17:53 → SUATTDRO 21:47 → 2S 21:47 → INTOOBSV 21:47 → 2S 23:11